=== PATIENT | female | born 1960 | race Caucasian/White ===

== ENCOUNTER 2016-09-29 15:07 | Inpatient (IN) | payer MEDICARE, MEDICAID ==
[2016-09-29 15:17] LABS: ABG Draw Site Left Radial; ALLEN'S TEST PASS; TCO2 46.9 MMOL/L (23-27)
--- NOTE | 2016-09-29 16:10 | DIRPT ---
CLINICAL DATA: Central line placement. Endotracheal tube placement. EXAM: PORTABLE CHEST 1 VIEW COMPARISON: 09/14/2016 FINDINGS: Right-sided IJ central line has been placed, tip overlying the level of the lower superior vena cava. Despite history, it no endotracheal tube is evident. Right hemidiaphragm is elevated. Heart is enlarged. There is pulmonary vascular congestion. IMPRESSION: 1. Interval placement of right IJ central line. No pneumothorax. 2. No endotracheal tube is evident. Electronically Signed By: Yue Villa M.D. On: 09/29/2016 16:07
--- NOTE | 2016-09-29 16:22 | EDPRACDOC ---
<Donovan Castaneda - Last Filed: 09/29/16 19:57> - General Information Information Source: Heel Padder Mode Of Arrival: Ambulance - History of Present Illness Exact Onset of Symptoms: Unknown HPI: Pt from [facility] brought by EMS c/o being unresponsive at facility. Pt unresponsive when EMS got there but revived and was alert and oriented in truck on O2 6L [place]. CO2 level was 80, came down to 60 per EMS. Pt normally on CPAP. Has a baseline tremor. Only complaint on arrival is "she has to pee". denies cp, sob. Duration: Unknown Symptoms Currently: Reports: Resolved Altered Quality: Reports: Decreased Alertness Altered Severity: Reports: Moderate Recent Symptoms of: Reports: None Relevant History: Reports: None Prehospital: Reports: Heel Padder, O2, IV <Keron Arenas - Last Filed: 09/29/16 23:44> - General Information Stated Complaint: RESP DISTRESS Home Medications: Home Medications Acetaminophen [Tylenol] 650 mg PO TID 08/29/16 Albuterol Sulfate [Ventolin Hfa] 2 puff INH Q6H PRN 08/29/16 Albuterol/Ipratropium Neb [Duoneb] 3 ml NEB Q8H 08/29/16 Alendronate Sodium [Fosamax] 70 mg PO FR 08/29/16 Atorvastatin Calcium [Lipitor] 80 mg PO HS 08/29/16 Bisacodyl [Dulcolax] 10 mg SC HS 08/29/16 Calcium Carbonate/Vitamin D3 [Oyster Shell 500-Vit D3 200 Tb] 1 tab PO TID 08/29 Cranberry Fruit Concentrate [Cranberry] 450 mg PO TID 08/29/16 Dextran 70/Hypromellose [Natural Balance Tears Eye Drop] 2 drops OU Q2H PRN Dicyclomine HCl [Bentyl] 40 mg PO QID 08/29/16 Gabapentin [Neurontin] 200 mg PO TID 08/29/16 Guaifenesin 1,200 mg PO BID 08/29/16 Insulin Aspart [Novolog Flexpen] 10 unit SQ .TID WITH MEALS 08/29/16 Insulin Glargine,Hum.rec.anlog [Toujeo Solostar] 133 unit SQ HS 08/29/16 Levothyroxine [Synthroid, Levoxyl] 200 mcg PO QAM 08/29/16 Lisinopril [Zestril] 20 mg PO QAM 08/29/16 Magnesium Hydroxide [Milk of Magnesia] 30 ml PO HS 08/29/16 Methadone HCl 5 mg PO TID 08/29/16 Methadone HCl 7.5 mg PO HS 08/29/16 Naloxone HCl [Narcan] 4 mg RENY .PRN PRN 08/29/16 Omeprazole 20 mg PO DAILY 08/29/16 Ondansetron HCl [Zofran] 4 mg PO Q6H PRN 08/29/16 Oxycodone HCl [Oxycodone Immediate Release] 15 mg PO Q4H PRN 08/29/16 Polyethylene Glycol 3350 [Miralax] 17 gm PO DAILY 08/29/16 Potassium Chloride 20 meq PO DAILY 08/29/16 Promethazine HCl 25 mg PO Q6H PRN 08/29/16 Ranitidine HCl [Zantac] 150 mg PO DAILY 08/29/16 Sennosides [Senna] 2 tabs PO DAILY 08/29/16 Venlafaxine HCl [Effexor Xr] 225 mg PO DAILY 08/29/16 Vitamins, Multiple [Unicap] 1 cap PO DAILY 08/29/16 Furosemide [Lasix] 40 mg PO DAILY PRN 09/14/16 Furosemide [Lasix] 80 mg PO DAILY 09/14/16 Cefepime HCl 1 gm IV .Q12H X 10D 09/29/16 Allergies/Adverse Reactions: Allergies Allergy/AdvReac Type Severity Reaction Status Date / Time cephalexin [From Keflex] Allergy Unknown Verified 08/29/16 12:01 erythromycin base Allergy Unknown Verified 08/29/16 12:01 moxifloxacin Allergy See Verified 08/29/16 12:01 Comments ED Past Medical History - History Reviewed Yes Nurses notes reviewed and agree except as marked - Patient Medical History Cardiac History: Reports: Hypertension, Hypercholesterolemia, Valvular Heart Disease Respiratory History: Reports: COPD, Pneumonia GI/ History: Reports: Renal Disease, Gastroesophageal Reflux, IBD Musculoskeletal History: Reports: Osteoarthritis Psychological History: Reports: Anxiety. Denies: Depression Systemic History: Reports: Cancer, Diabetes Surgical History: Reports: Cholecystectomy, Other (thyroid, neck exploration x 2 ,shoulder,thigh abscess, cyst,ectopic pregnanc) - Family Medical History Reports: Hypertension, Diabetes - Social Medical History Smoking Status: Never smoker <Keron Arenas - Last Filed: 09/29/16 23:44> EDM Review of Systems - Review of Systems ROS Negative Except as Marked: Yes All systems reviewed and were negative except as marked <Keron Arenas - Last Filed: 09/29/16 23:44> - Physical Exam Last recorded Vital Signs: Last Vital Signs Temp Pulse 87 09/29/16 16:04 Resp 24 09/29/16 16:04 BP 105/72 09/29/16 16:04 Pulse Ox 94 09/29/16 16:04 Oxygen Pulse Oxygen Saturation 94 O2 Device CPAP Oxygen Flow Rate Fraction of Inspired Oxygen ( 35 FIO2) <Donovan Castaneda - Last Filed: 09/29/16 19:57> - Physical Exam Constitutional: No apparent distress, Alert Oriented to: Time, Person, Place Last recorded Vital Signs: Last Vital Signs Temp Pulse 87 09/29/16 16:04 Resp 24 09/29/16 16:04 BP 105/72 09/29/16 16:04 Pulse Ox 94 09/29/16 16:04 Oxygen Pulse Oxygen Saturation 94 O2 Device CPAP Oxygen Flow Rate Fraction of Inspired Oxygen ( 35 FIO2) - HEENT Head: Normal Eye Exam: negative: Conjunctival Injection, Scleral Icterus Oropharynx: negative: Drooling Nose: No Symptoms Reported Neck: Normal - Respiratory/Cardiovascular Respiratory: Normal - CTA Cardiovascular: Normal - GI Tenderness: Non tender - Musculoskeletal Back: Normal Extremities: Normal - Integumentary Skin: Normal - Neurologic Mood Description: Normal Thought: Coherent <Keron Arenas - Last Filed: 09/29/16 23:44> ED Procedures - Central Line Informed of risks, benefits and alternatives described.: No Central Line Informed Consent Signed: Unable Indication: No peripheral access Line Procedure: Chlorahexadine Equipment used during procedure: Hat and Mask, Sterile Gown, Sterile Gloves Line Lumen: triple Central Line Postion: internal jugular (R) Anesthesia: Lidocaine Line Position approached and secured by standard fashion: sutured, good blood return, position confirmed w/ CXR Complications: none Post Central Line placement CXR: Ordered Post Line Placement Radiograph Findings: Proper placement <Donovan Castaneda - Last Filed: 09/29/16 19:57> - Results 09/29/16 16:16 09/29/16 16:16 WBC 9.2 xk/uL (3.8-10.8) 09/29/16 16:16 RBC 4.06 xM/uL (4.20-5.40) L 09/29/16 16:16 Hgb 11.3 g/dL (12.0-16.0) L 09/29/16 16:16 Hct 36.4 % (36-47) 09/29/16 16:16 MCV 90 fL (81-99) 09/29/16 16:16 MCH 27.8 pg (27-32) 09/29/16 16:16 MCHC 31.0 g/dl (33-36) L 09/29/16 16:16 RDW 18.4 % (11.5-14.5) H 09/29/16 16:16 Plt Count 380 xk/uL (130-400) 09/29/16 16:16 MPV 8.0 fL (7.4-10.4) 09/29/16 16:16 Neut % (Auto) Cancelled 09/29/16 16:16 Lymph % (Auto) Cancelled 09/29/16 16:16 [place] % (Auto) Cancelled 09/29/16 16:16 Eos % (Auto) Cancelled 09/29/16 16:16 Baso % (Auto) Cancelled 09/29/16 16:16 Absolute Neuts (auto) Cancelled 09/29/16 16:16 Absolute Lymphs (auto) Cancelled 09/29/16 16:16 Seg Neuts % (Manual) 83 % (45-76) H 09/29/16 16:16 Band Neutrophils % 0 % (0-5) 09/29/16 16:16 Lymphocytes % (Manual) 9 % (17-44) L 09/29/16 16:16 Monocytes % (Manual) 8 % (0-10) 09/29/16 16:16 Absolute Neutrophils 7.64 xk/uL (1.7-8.2) 09/29/16 16:16 Absolute Lymphocytes 0.83 xk/uL (0.65-4.75) 09/29/16 16:16 Platelet Estimate Large plts present (NORMAL) Plt clumps present (NORMAL) 09/29/16 16:16 Platelet Estimate Large plts present (NORMAL) Plt clumps present (NORMAL) 09/29/16 16:16 RBC Morphology 1+ aniso 1+ polychrom 09/29/16 16:16 RBC Morphology 1+ aniso 1+ polychrom 09/29/16 16:16 PT 9.7 SEC (9.2-11.2) 09/29/16 16:16 INR 0.9 09/29/16 16:16 APTT 19.1 SEC (22-35) L 09/29/16 16:16 Puncture Site Left radial 09/29/16 16:45 pH 7.360 pH UNITS (7.35-7.45) 09/29/16 16:45 pCO2 78.0 mmHg (35-45) H* 09/29/16 16:45 pO2 89.0 mmHg (80-100) 09/29/16 16:45 HCO3 44.1 MMOL/L (22-26) H 09/29/16 16:45 Total CO2 46.5 MMOL/L (23-27) H 09/29/16 16:45 Base Excess 14.7 (+/- 2) H 09/29/16 16:45 Vent Mode Bipap 14/05 RATE 09/29/16 16:45 FiO2 % 35% 09/29/16 16:45 Specimen Drawn By Piksa 09/29/16 16:45 Sodium 143 mEq/L (137-146) 09/29/16 16:16 Potassium 4.4 mEq/L (3.5-5.1) 09/29/16 16:16 Chloride 94 mEq/L (98-107) L 09/29/16 16:16 Carbon Dioxide 38 mMOL/L (22-33) H 09/29/16 16:16 Anion Gap 15 mEq/L (8-16) 09/29/16 16:16 BUN 38 MG/DL (7-17) H 09/29/16 16:16 Creatinine 0.70 MG/DL (0.52-1.04) 09/29/16 16:16 Estimated GFR (MDRD) > 60 mL/min (>=60) 09/29/16 16:16 Glucose 210 MG/DL (70-99) H 09/29/16 16:16 Calculated Osmolality 290 MOs/Kg (270-290) 09/29/16 16:16 Lactic Acid 1.9 mEq/L (0.7-2.1) 09/29/16 16:16 Calcium 8.6 MG/DL (8.4-10.2) 09/29/16 16:16 Corrected Calcium 9.3 MG/DL (8.4-10.2) 09/29/16 16:16 Total Bilirubin 0.4 MG/DL (0.2-1.3) 09/29/16 16:16 AST 27 IU/L (14-36) 09/29/16 16:16 ALT 39 IU/L (9-52) 09/29/16 16:16 Alkaline Phosphatase 110 IU/L (38-126) 09/29/16 16:16 Troponin I 0.01 ng/mL (<.04) 09/29/16 16:16 Total Protein 6.4 G/DL (6.3-8.2) 09/29/16 16:16 Albumin 3.3 G/DL (3.5-5.0) L 09/29/16 16:16 Lab Results 09/29/16 09/29/16 09/29/16 16:45 16:16 16:16 WBC 9.2 RBC 4.06 L Hgb 11.3 L Hct 36.4 MCV 90 MCH 27.8 MCHC 31.0 L RDW 18.4 H Plt Count 380 MPV 8.0 Neut % (Auto) Cancelled Lymph % (Auto) Cancelled [place] % (Auto) Cancelled Eos % (Auto) Cancelled Baso % (Auto) Cancelled Absolute Neuts (auto) Cancelled Absolute Lymphs (auto) Cancelled Seg Neuts % (Manual) 83 H Band Neutrophils % 0 Lymphocytes % (Manual) 9 L Monocytes % (Manual) 8 Absolute Neutrophils 7.64 Absolute Lymphocytes 0.83 Platelet Estimate Plt clumps present RBC Morphology 1+ polychrom PT 9.7 INR 0.9 APTT 19.1 L Puncture Site Left radial pH 7.360 pCO2 78.0 H* pO2 89.0 HCO3 44.1 H Total CO2 46.5 H Base Excess 14.7 H Vent Mode Bipap 14/8 FiO2 % 35% Specimen Drawn By Piksa Sodium Potassium Chloride Carbon Dioxide Anion Gap BUN Creatinine Estimated GFR (MDRD) Glucose Calculated Osmolality Lactic Acid Calcium Corrected Calcium Total Bilirubin AST ALT Alkaline Phosphatase Troponin I Total Protein Albumin 09/29/16 09/29/16 09/29/16 16:16 16:16 15:00 WBC RBC Hgb Hct MCV MCH MCHC RDW Plt Count MPV Neut % (Auto) Lymph % (Auto) [place] % (Auto) Eos % (Auto) Baso % (Auto) Absolute Neuts (auto) Absolute Lymphs (auto) Seg Neuts % (Manual) Band Neutrophils % Lymphocytes % (Manual) Monocytes % (Manual) Absolute Neutrophils Absolute Lymphocytes Platelet Estimate RBC Morphology PT INR APTT Puncture Site Left radial pH 7.320 L pCO2 86.0 H* pO2 67.0 L HCO3 44.3 H Total CO2 46.9 H Base Excess 14.0 H Vent Mode FiO2 % 3lpm nc Specimen Drawn By Piksa Sodium 143 Potassium 4.4 Chloride 94 L Carbon Dioxide 38 H Anion Gap 15 BUN 38 H Creatinine 0.70 Estimated GFR (MDRD) > 60 Glucose 210 H Calculated Osmolality 290 Lactic Acid 1.9 Calcium 8.6 Corrected Calcium 9.3 Total Bilirubin 0.4 AST 27 ALT 39 Alkaline Phosphatase 110 Troponin I 0.01 Total Protein 6.4 Albumin 3.3 L - Additional Information Additional Information: ADDENDUM LAB DRAW DELAY. <Donovan Castaneda - Last Filed: 09/29/16 19:57> - Re-evaluation Re-evaluation 1 Re-evaluation Time: 16:28 (VS wnl, pt sleeping but wakes up and is a+o ) - Results 09/29/16 16:16 09/29/16 16:16 Puncture Site Left radial 09/29/16 15:00 pH 7.320 pH UNITS (7.35-7.45) L 09/29/16 15:00 pCO2 86.0 mmHg (35-45) H* 09/29/16 15:00 pO2 67.0 mmHg (80-100) L 09/29/16 15:00 HCO3 44.3 MMOL/L (22-26) H 09/29/16 15:00 Total CO2 46.9 MMOL/L (23-27) H 09/29/16 15:00 Base Excess 14.0 (+/- 2) H 09/29/16 15:00 FiO2 % 3lpm nc 09/29/16 15:00 Specimen Drawn By Piksa 09/29/16 15:00 Lab Results 09/29/16 15:00 Puncture Site Left radial pH 7.320 L pCO2 86.0 H* pO2 67.0 L HCO3 44.3 H Total CO2 46.9 H Base Excess 14.0 H FiO2 % 3lpm nc Specimen Drawn By Piksa - EKG EKG #1 EKG Time: 15:08 -: Yes EKG interpreted by me Rate: bpm: 97 Rhythm: NSR ST: Normal Comparison: 09/14/16 (no sig change) <Keron Arenas - Last Filed: 09/29/16 23:44> ED Critical Care Note - Critical Care Note Total Time (mins): 35 <Donovan Castaneda - Last Filed: 09/29/16 19:57> - Departure Yes I personally saw and evaluated the patient. Decision to Admit Time: 17:00 (GREEN) Decision to admit date: 09/29/16 Decision to admit: from ED <Donovan Castaneda - Last Filed: 09/29/16 19:57> - Departure Disposition: Admit IP To This Hospital <Keron Arenas - Last Filed: 09/29/16 23:44> - Departure Condition: Critical Final Diagnosis: RESPIRATORY FAILURE, CENTRAL LINE BY DOLLY, HYPERCARBIA WITH AMS
[2016-09-29 16:40] LABS: BLOOD UREA NITROGEN 38 MG/DL (7-17); CALC CORRECTED 9.3 MG/DL (8.4-10.2); CALCIUM 8.6 MG/DL (8.4-10.2); CALCULATED OSMOLALITY 290 MOs/Kg (270-290); CHLORIDE 94 mEq/L (98-107); GLUCOSE 210 MG/DL (70-99); SODIUM LEVEL 143 mEq/L (137-146); TOTAL PROTEIN 6.4 G/DL (6.3-8.2)
[2016-09-29 16:43] LABS: PARTIAL THROMB. TIME 19.1 SEC (22-35); PT-INR 0.9
[2016-09-29 16:50] LABS: ALLEN'S TEST PASS; BEb 14.7 (+/- 2); TCO2 46.5 MMOL/L (23-27)
[2016-09-29 16:50] LABS: SEG NEUTROPHIL 83 % (45-76)
[2016-09-29 16:51] LABS: ABG Draw Site Left Radial; MODE BIPAP 14/8 RATE
--- NOTE | 2016-09-29 18:00 | HISTPHYS ---
- Chief Complaint Shortness of breath - History of Present Illness Patient is a 56-year-old morbidly obese white female brought in from [facility] by EMS. She was unresponsive at the facility. She remains a centrally unresponsive and unable to give any history. History from the ER is listed below. No family or other caregivers available. Exact Onset of Symptoms: Unknown HPI: Pt from [facility] brought by EMS c/o being unresponsive at facility. Pt unresponsive when EMS got there but revived and was alert and oriented in truck on O2 6L [place]. CO2 level was 80, came down to 60 per EMS. Pt normally on CPAP. Has a baseline tremor. Only complaint on arrival is "she has to pee". denies cp, sob. Duration: Unknown Symptoms Currently: Reports: Resolved Altered Quality: Reports: Decreased Alertness Altered Severity: Reports: Moderate Recent Symptoms of: Reports: None Relevant History: Reports: None Prehospital: Reports: Service Director, O2, IV - Medical History Cardiac History: Reports: Hypertension, Hypercholesterolemia, Valvular Heart Disease Respiratory History: Reports: COPD, Pneumonia GI/ History: Reports: Renal Disease, Gastroesophageal Reflux, IBD Musculoskeletal History: Reports: Osteoarthritis Systemic History: Reports: Cancer, Diabetes Psychological History: Reports: Anxiety. Denies: Depression - Surgical History Reports: Cholecystectomy, Other (thyroid, neck exploration x 2,shoulder,thigh abscess, cyst,ectopic pregnanc) - Medictions/Allergies Allergies cephalexin [From Keflex] Allergy (Verified 08/29/16 12:01) Unknown erythromycin base Allergy (Verified 08/29/16 12:01) Unknown moxifloxacin Allergy (Verified 08/29/16 12:01) See Comments Home Medications Acetaminophen [Tylenol] 650 mg PO TID 08/29/16 Albuterol Sulfate [Ventolin Hfa] 2 puff INH Q6H PRN 08/29/16 Albuterol/Ipratropium Neb [Duoneb] 3 ml NEB Q8H 08/29/16 Alendronate Sodium [Fosamax] 70 mg PO FR 08/29/16 Atorvastatin Calcium [Lipitor] 80 mg PO HS 08/29/16 Bisacodyl [Dulcolax] 10 mg IN HS 08/29/16 Calcium Carbonate/Vitamin D3 [Oyster Shell 500-Vit D3 200 Tb] 1 tab PO TID 08/29 Cranberry Fruit Concentrate [Cranberry] 450 mg PO TID 08/29/16 Dextran 70/Hypromellose [Natural Balance Tears Eye Drop] 2 drops OU Q2H PRN Dicyclomine HCl [Bentyl] 40 mg PO QID 08/29/16 Gabapentin [Neurontin] 200 mg PO TID 08/29/16 Guaifenesin 1,200 mg PO BID 08/29/16 Insulin Aspart [Novolog Flexpen] 10 unit SQ .TID WITH MEALS 08/29/16 Insulin Glargine,Hum.rec.anlog [Toujeo Solostar] 133 unit SQ HS 08/29/16 Levothyroxine [Synthroid, Levoxyl] 200 mcg PO QAM 08/29/16 Lisinopril [Zestril] 20 mg PO QAM 08/29/16 Magnesium Hydroxide [Milk of Magnesia] 30 ml PO HS 08/29/16 Methadone HCl 5 mg PO TID 08/29/16 Methadone HCl 7.5 mg PO HS 08/29/16 Naloxone HCl [Narcan] 4 mg RENY .PRN PRN 08/29/16 Omeprazole 20 mg PO DAILY 08/29/16 Ondansetron HCl [Zofran] 4 mg PO Q6H PRN 08/29/16 Oxycodone HCl [Oxycodone Immediate Release] 15 mg PO Q4H PRN 08/29/16 Polyethylene Glycol 3350 [Miralax] 17 gm PO DAILY 08/29/16 Potassium Chloride 20 meq PO DAILY 08/29/16 Promethazine HCl 25 mg PO Q6H PRN 08/29/16 Ranitidine HCl [Zantac] 150 mg PO DAILY 08/29/16 Sennosides [Senna] 2 tabs PO DAILY 08/29/16 Venlafaxine HCl [Effexor Xr] 225 mg PO DAILY 08/29/16 Vitamins, Multiple [Unicap] 1 cap PO DAILY 08/29/16 Furosemide [Lasix] 40 mg PO DAILY PRN 09/14/16 Furosemide [Lasix] 80 mg PO DAILY 09/14/16 Cefepime HCl 1 gm IV .Q12H X 10D 09/29/16 - Family History Reports: Hypertension, Diabetes - Social History Lives: in Jail/SNF Smoking Status: Never smoker - Review of Systems Yes Review of systems cannot be obtained due to the patient's medical condition Constitutional: No Symptoms Reported (No Fever, chills, wt loss/gain, diaphoresis,fatigue/malaise.). negative: Fever, Chills, Weakness, Fatigue, Loss of Appetite - Eyes No Symptoms Reported (No blurry vision, visual changes, eye pain, or eye redness.) - Ears No Symptoms Reported (No ear pain or discharge) - Nose No Symptoms Reported (No nasal discharge/congestion or bleeding) - Mouth Mouth: No Symptoms Reported (No oropharyngeal lesions or erythema) - Throat/Neck No Symptoms Reported (No throat pain or swelling.No oropharyngeal lesions or erythema.) - Respiratory No Symptoms Reported (No cough, wheezing, or shortness of breath.) - Cardiovascular No Symptoms Reported (No chest pain or palpitations.) - Neurological No Symptoms Reported (No headache, dizziness, seizures, or focal weakness.) - Integumentary No Symptoms Reported (no rashes or lesions) - Allergic/Immunologic No Symptoms Reported (no rashes or lesions) - Hematologic No Symptoms Reported (No chronic anemia, bleeding, or easy bruising.) - Endocrine No Symptoms Reported (No thyroid issues, polyuria, or polydipsia.) - Psychiatric No Symptoms Reported (Fully oriented, with normal and appropriate affect.) - Physical Exam Constitutional: Distress, Decreased Consciousness, Other (Morbid obesity). negative: Alert Oriented to: Person, Unable to Test Exam: Last Vital Signs Temp Pulse 87 09/29/16 16:04 Resp 24 09/29/16 16:04 BP 105/72 09/29/16 16:04 Pulse Ox 94 09/29/16 16:04 - HEENT Head: Normal Eye: negative: Conjunctival Injection, Scleral Icterus, Xanthelasma Oropharynx: negative: Drooling, Exudate, Red, White Plaques Tympanic Membrane: Normal (No discharge) ENT EAC: Normal (No oropharyngeal lesions or erythema. Mucous membranes are dry. ) TMJ: Normal Nose: No Symptoms Reported - Respiratory/Cardiovascular Respiratory: Accessory Muscle Use, Diminished, Tachypnea. negative: Excursion ( Decreased excursion) Cardiovascular: Normal (RRR , Normal S1, S2. No murmurs, rubs, or gallops. PMI non-displaced. Carotids: no carotid bruits. No bradycardia or tachycardia. DP pulses 2+ bilaterally.) - GI Auscultation: Normal (NABS) Palpation: Normal (Soft,non distended,nontender. No hepatosplenomegaly.) Tenderness: Non tender Torres's Sign: Negative - Musculoskeletal Back: Normal Extremities: Normal - Integumentary Skin: Normal Lymphatics: Normal (No cervical lymphadenopathy. No supraclavicular lymphadenopathy.) - Neurologic Memory Impaired: Unable to Test Motor Function: Unable to Test Cranial Nerve: Unable to Test Cerebellar: Unable to Test Mood Description: Uncooperative Perception: Normal (Normal and appropriate affect) - Focused CV Perfusion Exam Vital Signs: Last Vital Signs Temp Pulse 87 09/29/16 16:04 Resp 24 09/29/16 16:04 BP 105/72 09/29/16 16:04 Pulse Ox 94 09/29/16 16:04 - Lab Results 09/29/16 16:16 09/29/16 16:16 Laboratory Tests 09/14/16 09/29/16 09/29/16 13:46 15:00 16:16 INR 0.9 pH 7.420 7.320 L pCO2 78.0 H* 86.0 H* pO2 75.0 L 67.0 L HCO3 50.6 H 44.3 H Total CO2 53.0 H Base Excess 21.3 H 14.0 H Vent Mode 09/29/16 16:45 INR pH 7.360 pCO2 78.0 H* pO2 89.0 HCO3 44.1 H Total CO2 46.5 H Base Excess 14.7 H Vent Mode Bipap 14/8 - Assessment (1) Hypercapnic respiratory failure J96.92 - RESPIRATORY FAILURE, UNSPECIFIED WITH HYPERCAPNIA Acute Qualifiers: Chronicity: acute on chronic Qualified Code(s): J96.22 - Acute and chronic respiratory failure with hypercapnia Admit patient [facility] ICU for further treatment and evaluation. She is critically ill. She is requiring BiPAP noted to maintain any respiratory status. She does appear to be improving very slightly. Will continue with BiPAP adjust settings as needed. Adjust O2 as needed to keep O2 sats between 90 and 92. Will continue to follow. Uncertain what may have set this off. Could have an underlying infection. (2) UTI (urinary tract infection) N39.0 - URINARY TRACT INFECTION, SITE NOT SPECIFIED Acute Qualifiers: Urinary tract infection type: acute cystitis Hematuria presence: with hematuria Qualified Code(s): N30.01 - Acute cystitis with hematuria Suspected. Will go ahead and treat. Check cultures of urine and blood. (3) DM2 (diabetes mellitus, type 2) E11.9 - TYPE 2 DIABETES MELLITUS WITHOUT COMPLICATIONS Chronic Qualifiers: Diabetes mellitus complication status: with neurologic complications Diabetes mellitus complication detail: with other neurological complication Diabetes mellitus continuous churn buttermaker insulin use: with skilled nursing use Qualified Code(s) : E11.49 - Type 2 diabetes mellitus with other diabetic neurological complication; Z79.4 - local company intermodal truck driver (current) use of insulin Patient has morbid obesity. Will continue with sliding scale insulin coverage. When she is able to start taking p.o. will start ADA diet. (4) GERD (gastroesophageal reflux disease) K21.9 - GASTRO-ESOPHAGEAL REFLUX DISEASE WITHOUT ESOPHAGITIS Chronic Qualifiers: Esophagitis presence: without esophagitis Qualified Code(s): K21.9 - Gastro -esophageal reflux disease without esophagitis Continue PPI (5) HTN (hypertension) I10 - ESSENTIAL (PRIMARY) HYPERTENSION Chronic Qualifiers: Hypertension type: essential hypertension Qualified Code(s): I10 - Essential (primary) hypertension Hold current blood pressure medications. Restart as needed. Case Care Discussed with: Nursing Staff Total Time: 60 Critical Care: Yes Code: 291
[2016-09-29] MEDS ORDERED: Non-Formulary Medication ITEM (Oxycodone Hcl [Oxycodone Immediate Release] 15 MG) PO PRN (18:03)
[2016-09-29] MEDS ORDERED: TUSSIONEX 5 ML ORAL SYRINGE PO PRN (18:09)
[2016-09-29] MEDS ORDERED: PROMETHAZINE 25 MG/ML VIAL IV PRN (18:09)
[2016-09-29] MEDS ORDERED: ONDANSETRON HCL 4 MG/2 ML VIAL IV PRN (18:09)
[2016-09-29] MEDS ORDERED: FLEET 4.5 OZ ENEMA PR PRN (18:09)
[2016-09-29] MEDS ORDERED: ACETAMINOPHEN 650 MG SUPP PR PRN (18:09)
[2016-09-29] MEDS ORDERED: Aluminum;Magnesium;Simethicone 30 ML UDC PO PRN (18:09)
[2016-09-29] MEDS ORDERED: GUAIFEN 100 MG-DEXTROMETH 10 MG PER 5 ML PO PRN (18:09)
[2016-09-29] MEDS ORDERED: SODIUM CHLORIDE 0.9% 3 ML FLUSH FLUSH PRN (18:10)
[2016-09-29] MEDS ORDERED: GLUCOSE (ORAL GEL) 15 GM TUBE PO PRN (18:10)
[2016-09-29] MEDS ORDERED: GLUCAGON 1 MG VIAL SQ PRN (18:10)
[2016-09-29] MEDS ORDERED: SODIUM CHLORIDE 0.9% 5 ML FLUSH FLUSH PRN (18:10)
[2016-09-29] MEDS ORDERED: ALBUTEROL 0.083% 3 ML NEB NEB PRN (18:10)
[2016-09-29] MEDS ORDERED: DEXTROSE 25 GM/50 ML PFS IV PRN (18:10)
[2016-09-29] MEDS ORDERED: ARTIFICIAL TEARS OPH SOLN 15 ML OU PRN (18:23)
[2016-09-29] MEDS ORDERED: INSULIN ASPART 100 UNITS/ML PEN SQ SCH (19:00)
[2016-09-29] MEDS ORDERED: GLARGINE INSULIN (LANTUS) 100 UNITS/ML PEN SQ SCH (19:00)
[2016-09-29 19:03] LABS: LEUKOCYTES/URINE NEG (NEGATIVE); NITRITE/URINE POS (NEGATIVE); URINE OCCULT BLOOD NEG (NEG/TRACE)
[2016-09-29] MEDS ORDERED: Vaccine Screening Complete SCH (20:00)
[2016-09-29] MEDS: METHADONE 10 MG TAB PO SCH (20:25)
[2016-09-29] MEDS: DICYCLOMINE 20 MG TAB PO SCH (20:25)
[2016-09-29] MEDS: BISACODYL 10 MG SUPP PR SCH (20:25)
[2016-09-29] MEDS: CHLORHEXIDINE (HIBICLENS) 4 OZ BOTTLE TOP SCH (20:25)
[2016-09-29] MEDS: GABAPENTIN 100 MG CAP PO SCH (20:26)
[2016-09-29] MEDS: GUAIFENESIN 600 MG LA TAB PO SCH (20:26)
[2016-09-29] MEDS: MAGNESIUM HYDROXIDE 30 ML BOTTLE PO SCH (20:26)
[2016-09-29] MEDS: ATORVASTATIN 80 MG TAB PO SCH (20:26)
[2016-09-29] MEDS: PIPERACILLIN AND TAZOBACTAM 4.5 GM in D5W 100 ML IV SCH (20:41)
[2016-09-29] MEDS: ENOXAPARIN 80 MG/0.8 ML PFS SQ SCH (20:41)
[2016-09-29] MEDS ORDERED: INSULIN GLARGINE SQ SCH (21:00)
[2016-09-29] MEDS ORDERED: METHADONE HCL 5 MG PO SCH (21:00)
[2016-09-29] MEDS ORDERED: METHADONE HCL PO SCH (21:00)
[2016-09-29] MEDS ORDERED: GUAIFENESIN 1200 MG PO SCH (21:00)
[2016-09-29] MEDS ORDERED: [UNRECOGNIZED DRUG - OTHER] SQ SCH (21:00)
[2016-09-29] MEDS: Albuterol/Ipratropium Neb 3 ML NEB NEB SCH (21:04)
--- NOTE | 2016-09-29 21:09 | DIRPT ---
CLINICAL DATA: Initial encounter for shortness of breath with bilateral lower extremity swelling. EXAM: BILATERAL LOWER EXTREMITY VENOUS DOPPLER ULTRASOUND TECHNIQUE: López-scale sonography with graded compression, as well as color Doppler and duplex ultrasound were performed to evaluate the lower extremity deep venous systems from the level of the common femoral vein and including the common femoral, femoral, profunda femoral, popliteal and calf veins including the posterior tibial, peroneal and gastrocnemius veins when visible. The superficial great saphenous vein was also interrogated. Spectral Doppler was utilized to evaluate flow at rest and with distal augmentation maneuvers in the common femoral, femoral and popliteal veins. COMPARISON: None. FINDINGS: RIGHT LOWER EXTREMITY Common Femoral Vein: No evidence of thrombus. Normal compressibility, respiratory phasicity and response to augmentation. Saphenofemoral Junction: No evidence of thrombus. Normal compressibility and flow on color Doppler imaging. Profunda Femoral Vein: No evidence of thrombus. Normal compressibility and flow on color Doppler imaging. Femoral Vein: No evidence of thrombus. Normal compressibility, respiratory phasicity and response to augmentation. Popliteal Vein: No evidence of thrombus. Normal compressibility, respiratory phasicity and response to augmentation. Calf Veins: Poorly visualized secondary to body habitus but no evidence of thrombus where visible. Other Findings: None. LEFT LOWER EXTREMITY Common Femoral Vein: No evidence of thrombus. Normal compressibility, respiratory phasicity and response to augmentation. Saphenofemoral Junction: No evidence of thrombus. Normal compressibility and flow on color Doppler imaging. Profunda Femoral Vein: No evidence of thrombus. Normal compressibility and flow on color Doppler imaging. Femoral Vein: No evidence of thrombus. Normal compressibility, respiratory phasicity and response to augmentation. Popliteal Vein: No evidence of thrombus. Normal compressibility, respiratory phasicity and response to augmentation. Calf Veins: Not well seen secondary to patient body habitus. No evidence for thrombus where visualized. IMPRESSION: No evidence of deep venous thrombosis. Electronically Signed By: John Randall M.D. On: 09/29/2016 21:07
[2016-09-29] MEDS: GLARGINE INSULIN (LANTUS) 100 UNITS/ML PEN SQ SCH (21:20)
[2016-09-29] MEDS: REGULAR INSULIN 100 UNITS/ML - 3 ML VIAL SQ SCH (21:30)
[2016-09-30] MEDS: OXYCODONE HCL 5 MG TABLET PO PRN (01:03)
[2016-09-30] MEDS: METHADONE 10 MG TAB PO SCH ×4 (01:03→18:13)
[2016-09-30] MEDS: Albuterol/Ipratropium Neb 3 ML NEB NEB SCH ×4 (01:31→20:12)
[2016-09-30] MEDS: PIPERACILLIN AND TAZOBACTAM 4.5 GM in D5W 100 ML IV SCH ×4 (02:26→20:50)
[2016-09-30 04:55] LABS: MPV 8.2 fL (7.4-10.4)
[2016-09-30 05:09] LABS: BLOOD UREA NITROGEN 42 MG/DL (7-17); CALCIUM 8.6 MG/DL (8.4-10.2); CALCULATED OSMOLALITY 288 MOs/Kg (270-290); CHLORIDE 94 mEq/L (98-107); GLUCOSE 200 MG/DL (70-99); SODIUM LEVEL 141 mEq/L (137-146)
[2016-09-30] MEDS: GABAPENTIN 100 MG CAP PO SCH ×3 (05:34→20:51)
[2016-09-30] MEDS: PANTOPRAZOLE 40 MG TAB PO SCH (05:34)
[2016-09-30] MEDS: LEVOTHYROXINE 200 MCG (0.2 MG) TAB PO SCH (05:34)
[2016-09-30] MEDS: DICYCLOMINE 20 MG TAB PO SCH ×4 (05:34→20:51)
[2016-09-30] MEDS: SODIUM CHLORIDE 0.9% 3 ML FLUSH FLUSH SCH ×2 (05:35→18:35)
[2016-09-30] MEDS: SODIUM CHLORIDE 0.9% 5 ML FLUSH FLUSH SCH ×2 (05:35→18:35)
[2016-09-30] MEDS: INSULIN ASPART 100 UNITS/ML PEN SQ SCH ×3 (06:19→18:12)
[2016-09-30] MEDS: REGULAR INSULIN 100 UNITS/ML - 3 ML VIAL SQ SCH ×4 (06:20→22:26)
[2016-09-30] MEDS ORDERED: PNEUMOCOCCAL 0.5 ML VIAL IM ONE (08:00)
[2016-09-30] MEDS ORDERED: Non-Formulary Medication ITEM (Potassium Chloride [Potassium Chloride] 20 MEQ) PO SCH (09:00)
[2016-09-30] MEDS ORDERED: POTASSIUM CHLORIDE 20 MEQ TAB PO SCH (09:00)
[2016-09-30] MEDS ORDERED: LISINOPRIL 20 MG TAB PO SCH (09:00)
[2016-09-30] MEDS ORDERED: Non-Formulary Medication ITEM (Omeprazole [Omeprazole] 20 MG) PO SCH (09:00)
[2016-09-30] MEDS: PEG-ELECTROLYTE 17 GM PACK PO SCH (10:18)
[2016-09-30] MEDS: VENLAFAXINE XR 75 MG CAP PO SCH (10:20)
[2016-09-30] MEDS: CALCIUM CARBONATE + VITAMIN D 500 MG TAB PO SCH ×3 (10:22→18:13)
[2016-09-30] MEDS: SENNA CONCENTRATE TAB PO SCH (10:24)
[2016-09-30] MEDS: RANITIDINE 150 MG TAB PO SCH (10:25)
[2016-09-30] MEDS: GUAIFENESIN 600 MG LA TAB PO SCH ×2 (10:25→20:52)
[2016-09-30] MEDS: PROBIOTIC BLEND TAB PO SCH ×2 (13:05→18:13)
[2016-09-30] MEDS: VITAMINS, MULTIPLE CAP PO SCH (13:06)
[2016-09-30] MEDS: ENOXAPARIN 80 MG/0.8 ML PFS SQ SCH (18:12)
[2016-09-30] MEDS: BISACODYL 10 MG SUPP PR SCH (20:51)
[2016-09-30] MEDS: ATORVASTATIN 80 MG TAB PO SCH (20:52)
[2016-09-30] MEDS: MAGNESIUM HYDROXIDE 30 ML BOTTLE PO SCH (20:52)
[2016-09-30] MEDS: CHLORHEXIDINE (HIBICLENS) 4 OZ BOTTLE TOP SCH (20:52)
[2016-09-30] MEDS: GLARGINE INSULIN (LANTUS) 100 UNITS/ML PEN SQ SCH (20:54)
--- NOTE | 2016-09-30 21:10 | GENMEDPROG ---
Chief Complaint: Acute on chronic respiratory failure Subjective Note: Patient less somnolent today. Will continue with current Medicaid she denies significant new complaints Notes Reviewed: Yes Events from last night noted and discussed with Clinical Staff Current Medication List: Reviewed Currently: Reports: CHUCHO PETIT DVT Prophylaxis: Yes - Physical Examination Vital Signs and I&O: Last Vital Signs Temp 97.8 F 09/30/16 14:00 Pulse 79 09/30/16 20:00 Resp 22 09/30/16 14:00 BP 100/55 L 09/30/16 18:00 Pulse Ox 98 09/30/16 20:00 Oxygen Pulse Oxygen Saturation 98 O2 Device Nasal Cannula Oxygen Flow Rate 3 Fraction of Inspired Oxygen ( 35 FIO2) Intake & Output 09/27/16 09/28/16 09/29/16 09/30/16 23:59 23:59 23:59 23:59 Intake Total 0 1206 Output Total 700 525 Balance -700 681 Patient's weight 342 lb 6.4 oz General: Oriented x3, No acute distress, Moderate distress, Weakness, Fatigue, Chills. negative: Alert HEENT: Normal (Normocephalic, atraumatic;EOMI.Sclera white, Nares patent, without discharge or bleeding. No oropharyngeal lesions or erythema. Mucous membranes are dry.) Neck: Non-tender, Full range of motion, Normal Trachea alignment, Normal inspection (No cervical lymphadenopathy. No supraclavicular lymphadenopathy.), No Masses palpable, Supple Lymphatics: Normal (No lymph node swelling or pain.) Respiratory: Accessory Muscle Use, Diminished, Rales, Tachypnea. negative: Excursion (Decreased excursion) Cardiovascular: Regular rate and rhythm (No bradycardia or tachycardia), Normal S1, No Gallops,Rubs/Murmurs, Normal S2, Good Pedal Pulses (DP pulses 2+ bilaterally) GI: Normal bowel sounds (normal active sounds), Soft (non-distended), Non tender , No hepatospenomegaly, No masses, Obese Extremities/Musculoskeletal: Normal pulses (DP pulses 2+ bilaterally) Skin: Warm,Dry and Intact, No rashes, No significant lesion Neurological: Strength at 5/5 X4 ext (Motor 5/5 throughout.), Normal tone, Cranial nerves 3-12 NL ( 2-12 grossly intact.) Psych/Mental Status: Appropriate, Normal Affect Lab/DI/Studies Reviewed: Laboratory Results - last 24 hr 09/29/16 09/29/16 09/30/16 21:04 22:00 04:30 WBC RBC Hgb Hct MCV MCH MCHC RDW Plt Count MPV Sodium 141 Potassium 4.0 Chloride 94 L Carbon Dioxide 42 H Anion Gap 9 BUN 42 H Creatinine 0.70 Estimated GFR (MDRD) > 60 Glucose 200 H POC Capillary Glucose 202 H Calculated Osmolality 288 Calcium 8.6 Troponin I 0.06 09/30/16 09/30/16 09/30/16 04:30 06:13 13:02 WBC 11.5 H RBC 3.49 L Hgb 9.8 L D Hct 31.6 L MCV 90 MCH 28.0 MCHC 31.0 L RDW 18.3 H Plt Count 338 MPV 8.2 Sodium Potassium Chloride Carbon Dioxide Anion Gap BUN Creatinine Estimated GFR (MDRD) Glucose POC Capillary Glucose 212 H 154 H Calculated Osmolality Calcium Troponin I 09/30/16 16:27 WBC RBC Hgb Hct MCV MCH MCHC RDW Plt Count MPV Sodium Potassium Chloride Carbon Dioxide Anion Gap BUN Creatinine Estimated GFR (MDRD) Glucose POC Capillary Glucose 131 H Calculated Osmolality Calcium Troponin I - Assessment (1) Hypercapnic respiratory failure Acute J96.92 - RESPIRATORY FAILURE, UNSPECIFIED WITH HYPERCAPNIA Qualifiers: Chronicity: acute on chronic Qualified Code(s): J96.22 - Acute and chronic respiratory failure with hypercapnia Comment/Plan: Patient remains critically ill and requiring continuous BiPAP for ventilation. Will continue to follow. Check ABG in a.m.. Check chest x-ray as needed. Due to her morbid obesity the chest x-ray (2) UTI (urinary tract infection) Acute N39.0 - URINARY TRACT INFECTION, SITE NOT SPECIFIED Qualifiers: Urinary tract infection type: acute cystitis Hematuria presence: with hematuria Qualified Code(s): N30.01 - Acute cystitis with hematuria Comment/Plan: Suspected. Will go ahead and treat. Check cultures of urine and blood. (3) DM2 (diabetes mellitus, type 2) Chronic E11.9 - TYPE 2 DIABETES MELLITUS WITHOUT COMPLICATIONS Qualifiers: Diabetes mellitus complication status: with neurologic complications Diabetes mellitus complication detail: with other neurological complication Diabetes mellitus dental billing specialist insulin use: with intermediate use Qualified Code(s) : E11.49 - Type 2 diabetes mellitus with other diabetic neurological complication; Z79.4 - assisted (current) use of insulin Comment/Plan: Patient has morbid obesity. Will continue with sliding scale insulin coverage. When she is able to start taking p.o. will start ADA diet. (4) GERD (gastroesophageal reflux disease) Chronic K21.9 - GASTRO-ESOPHAGEAL REFLUX DISEASE WITHOUT ESOPHAGITIS Qualifiers: Esophagitis presence: without esophagitis Qualified Code(s): K21.9 - Gastro -esophageal reflux disease without esophagitis Comment/Plan: Continue PPI (5) HTN (hypertension) Chronic I10 - ESSENTIAL (PRIMARY) HYPERTENSION Qualifiers: Hypertension type: essential hypertension Qualified Code(s): I10 - Essential (primary) hypertension Comment/Plan: Hold current blood pressure medications. Restart as needed. Case Care Discussed with: Patient, Nursing Staff Total Time: 40 Critical Care: Yes Code: 291
[2016-10-01] MEDS: METHADONE 10 MG TAB PO SCH ×4 (00:32→16:42)
[2016-10-01] MEDS: PIPERACILLIN AND TAZOBACTAM 4.5 GM in D5W 100 ML IV SCH ×4 (01:36→21:14)
[2016-10-01] MEDS: Albuterol/Ipratropium Neb 3 ML NEB NEB SCH ×4 (02:03→21:16)
[2016-10-01] MEDS: SODIUM CHLORIDE 0.9% 5 ML FLUSH FLUSH SCH ×2 (05:22→17:43)
[2016-10-01] MEDS: GABAPENTIN 100 MG CAP PO SCH ×3 (05:25→21:02)
[2016-10-01] MEDS: PANTOPRAZOLE 40 MG TAB PO SCH (05:25)
[2016-10-01] MEDS: LEVOTHYROXINE 200 MCG (0.2 MG) TAB PO SCH (05:25)
[2016-10-01] MEDS: SODIUM CHLORIDE 0.9% 3 ML FLUSH FLUSH SCH ×2 (05:25→17:43)
[2016-10-01 06:06] LABS: MPV 8.6 fL (7.4-10.4)
[2016-10-01] MEDS: INSULIN ASPART 100 UNITS/ML PEN SQ SCH ×3 (06:24→16:55)
[2016-10-01] MEDS: CALCIUM CARBONATE + VITAMIN D 500 MG TAB PO SCH ×3 (06:26→16:42)
[2016-10-01] MEDS: DICYCLOMINE 20 MG TAB PO SCH ×4 (06:26→21:02)
[2016-10-01 06:39] LABS: BLOOD UREA NITROGEN 59 MG/DL (7-17); CALCIUM 8.5 MG/DL (8.4-10.2); CALCULATED OSMOLALITY 287 MOs/Kg (270-290); CHLORIDE 91 mEq/L (98-107); GLUCOSE 163 MG/DL (70-99); SODIUM LEVEL 138 mEq/L (137-146)
[2016-10-01] MEDS: REGULAR INSULIN 100 UNITS/ML - 3 ML VIAL SQ SCH ×4 (06:42→22:13)
[2016-10-01] MEDS ORDERED: NS 1,000 ML IV SCH (08:00)
[2016-10-01] MEDS: RANITIDINE 150 MG TAB PO SCH (08:08)
[2016-10-01] MEDS: VENLAFAXINE XR 75 MG CAP PO SCH (08:08)
[2016-10-01] MEDS: SENNA CONCENTRATE TAB PO SCH (08:09)
[2016-10-01] MEDS: PEG-ELECTROLYTE 17 GM PACK PO SCH (08:09)
[2016-10-01] MEDS: GUAIFENESIN 600 MG LA TAB PO SCH ×2 (08:09→21:02)
--- NOTE | 2016-10-01 08:36 | GENMEDPROG ---
Chief Complaint: Respiratory failure Subjective Note: She is arousable, seems to be oriented, but does not talk to me very much. She denies any chest pain, significant shortness of breath or nausea. Notes Reviewed: Yes Events from last night noted and discussed with Clinical Staff Current Medication List: Reviewed Currently: Reports: PETIT, CHUCHO DVT Prophylaxis: Yes - Physical Examination Vital Signs and I&O: Last Vital Signs Temp 97.7 F 10/01/16 07:00 Pulse 71 10/01/16 07:00 Resp 15 10/01/16 08:28 BP 91/55 L 10/01/16 07:00 Pulse Ox 95 10/01/16 08:28 Oxygen Pulse Oxygen Saturation 95 O2 Device BiPAP Oxygen Flow Rate 3 Fraction of Inspired Oxygen ( 35 FIO2) Intake & Output 09/29/16 09/30/16 10/01/16 10/02/16 06:59 06:59 06:59 06:59 Intake Total 279 1702 Output Total 825 725 Balance -546 977 Patient's weight 155.31 kg 153.405 kg General: Oriented x3, No acute distress, Moderate distress, Weakness, Fatigue, Chills. negative: Alert HEENT: Normal (Normocephalic, atraumatic;EOMI.Sclera white, Nares patent, without discharge or bleeding. No oropharyngeal lesions or erythema. Mucous membranes are dry.) Neck: Non-tender, Full range of motion, Normal Trachea alignment, Normal inspection (No cervical lymphadenopathy. No supraclavicular lymphadenopathy.), No Masses palpable, Supple Lymphatics: Normal (No lymph node swelling or pain.) Respiratory: Accessory Muscle Use, Diminished, Rales, Tachypnea. negative: Excursion (Decreased excursion) Cardiovascular: Regular rate and rhythm (No bradycardia or tachycardia), Normal S1, No Gallops,Rubs/Murmurs, Normal S2, Good Pedal Pulses (DP pulses 2+ bilaterally) GI: Normal bowel sounds (normal active sounds), Soft (non-distended), Non tender , No hepatospenomegaly, No masses, Obese Extremities/Musculoskeletal: Normal pulses (DP pulses 2+ bilaterally) Skin: Warm,Dry and Intact, No rashes, No significant lesion Neurological: Strength at 5/5 X4 ext (Motor 5/5 throughout.), Normal tone, Cranial nerves 3-12 NL ( 2-12 grossly intact.) Psych/Mental Status: Appropriate, Normal Affect Lab/DI/Studies Reviewed: Laboratory Tests 09/30/16 09/30/16 10/01/16 04:30 04:30 05:20 WBC Hgb 9.8 L D Potassium 4.0 5.5 H D BUN 59 H Creatinine 1.30 H D 10/01/16 05:20 WBC 10.0 Hgb 9.5 L Potassium BUN Creatinine - Assessment (1) Acute respiratory failure with hypoxia Acute J96.01 - ACUTE RESPIRATORY FAILURE WITH HYPOXIA Comment/Plan: Seems that her respiratory failure has improved significantly while in the hospital. She has admitted to not being compliant with BiPAP when she last left the hospital. Has also empirically been on Zosyn, respiratory status has been improving. (2) Fluid overload Acute E87.70 - FLUID OVERLOAD, UNSPECIFIED Qualifiers: Hypervolemia type: unspecified Qualified Code(s): E87.70 - Fluid overload, unspecified Comment/Plan: Monitor weight continue IV Lasix infusion. Fluid restriction continue to monitor. (3) Hypercapnic respiratory failure Acute J96.92 - RESPIRATORY FAILURE, UNSPECIFIED WITH HYPERCAPNIA Qualifiers: Chronicity: acute on chronic Qualified Code(s): J96.22 - Acute and chronic respiratory failure with hypercapnia Comment/Plan: Patient respiratory status is now more stable, after being on continues BiPAP for ventilation. (4) Pneumonia Acute J18.9 - PNEUMONIA, UNSPECIFIED ORGANISM Qualifiers: Pneumonia type: due to unspecified organism Laterality: right Lung location: middle lobe of lung Qualified Code(s): J18.9 - Pneumonia, unspecified organism Comment/Plan: Continue empiric Zosyn for now. (5) Poor venous access Acute I87.8 - OTHER SPECIFIED DISORDERS OF VEINS (6) DM2 (diabetes mellitus, type 2) Chronic E11.9 - TYPE 2 DIABETES MELLITUS WITHOUT COMPLICATIONS Qualifiers: Diabetes mellitus complication status: with neurologic complications Diabetes mellitus complication detail: with other neurological complication Diabetes mellitus termite exterminator helper insulin use: with termite exterminator helper use Qualified Code(s) : E11.49 - Type 2 diabetes mellitus with other diabetic neurological complication; Z79.4 - rat exterminator (current) use of insulin Comment/Plan: Patient has morbid obesity. Will continue with sliding scale insulin coverage. ADA diet when eating. (7) GERD (gastroesophageal reflux disease) Chronic K21.9 - GASTRO-ESOPHAGEAL REFLUX DISEASE WITHOUT ESOPHAGITIS Qualifiers: Esophagitis presence: without esophagitis Qualified Code(s): K21.9 - Gastro -esophageal reflux disease without esophagitis Comment/Plan: Continue PPI (8) HTN (hypertension) Chronic I10 - ESSENTIAL (PRIMARY) HYPERTENSION Qualifiers: Hypertension type: essential hypertension Qualified Code(s): I10 - Essential (primary) hypertension Comment/Plan: Hold current blood pressure medications. Restart as needed. (9) Hypothyroid Chronic E03.9 - HYPOTHYROIDISM, UNSPECIFIED Qualifiers: Hypothyroidism type: acquired Qualified Code(s): E03.9 - Hypothyroidism, unspecified Comment/Plan: Continue Synthroid (10) Morbid obesity Chronic E66.01 - MORBID (SEVERE) OBESITY DUE TO EXCESS CALORIES Qualifiers: Obesity type: due to excess calories Qualified Code(s): E66.01 - Morbid ( severe) obesity due to excess calories Comment/Plan: Assist with ADLs and with transfers continue falls and safety precautions. Discussed with patient that she will need to Tramaine is 150 lb in order to feel that she can breathe significantly better. (11) AXEL (acute kidney injury) Acute N17.9 - ACUTE KIDNEY FAILURE, UNSPECIFIED Comment/Plan: Patient develop some hyperkalemia and acute kidney injury overnight. Will discontinue home lisinopril, and scheduled p.o. potassium. Will gently hydrate today and recheck renal function in the morning.
[2016-10-01 09:20] LABS: ALLEN'S TEST PASS; TCO2 44.8 MMOL/L (23-27)
[2016-10-01 09:21] LABS: ABG Draw Site Left Radial
[2016-10-01 09:22] LABS: MODE BIPAP 14/8 RATE
[2016-10-01] MEDS: PROBIOTIC BLEND TAB PO SCH ×2 (11:01→16:42)
[2016-10-01] MEDS: VITAMINS, MULTIPLE CAP PO SCH (11:02)
[2016-10-01] MEDS: NS 1,000 ML IV SCH ×2 (15:03→18:07)
[2016-10-01] MEDS: ENOXAPARIN 80 MG/0.8 ML PFS SQ SCH (17:42)
[2016-10-01] MEDS: BISACODYL 10 MG SUPP PR SCH (20:52)
[2016-10-01] MEDS: MAGNESIUM HYDROXIDE 30 ML BOTTLE PO SCH (21:02)
[2016-10-01] MEDS: ATORVASTATIN 80 MG TAB PO SCH (21:02)
[2016-10-01] MEDS: CHLORHEXIDINE (HIBICLENS) 4 OZ BOTTLE TOP SCH (21:03)
[2016-10-01] MEDS: GLARGINE INSULIN (LANTUS) 100 UNITS/ML PEN SQ SCH (21:03)
[2016-10-01] MEDS: ACETAMINOPHEN 325 MG/TAB TABLET PO PRN (21:03)
[2016-10-02] MEDS: METHADONE 10 MG TAB PO SCH ×4 (01:11→18:37)
[2016-10-02] MEDS: PIPERACILLIN AND TAZOBACTAM 4.5 GM in D5W 100 ML IV SCH ×2 (01:19→09:32)
[2016-10-02] MEDS: NS 1,000 ML IV SCH (01:19)
[2016-10-02] MEDS: Albuterol/Ipratropium Neb 3 ML NEB NEB SCH ×4 (02:19→21:29)
[2016-10-02] MEDS: SODIUM CHLORIDE 0.9% 3 ML FLUSH FLUSH SCH ×2 (05:10→18:34)
[2016-10-02] MEDS: REGULAR INSULIN 100 UNITS/ML - 3 ML VIAL SQ SCH ×4 (05:10→22:17)
[2016-10-02] MEDS: SODIUM CHLORIDE 0.9% 5 ML FLUSH FLUSH SCH ×2 (05:12→18:34)
[2016-10-02] MEDS: LEVOTHYROXINE 200 MCG (0.2 MG) TAB PO SCH (05:26)
[2016-10-02] MEDS: PANTOPRAZOLE 40 MG TAB PO SCH (05:26)
[2016-10-02] MEDS: GABAPENTIN 100 MG CAP PO SCH ×3 (05:26→20:41)
[2016-10-02 06:05] LABS: BLOOD UREA NITROGEN 49 MG/DL (7-17); CALCIUM 7.5 MG/DL (8.4-10.2); CALCULATED OSMOLALITY 283 MOs/Kg (270-290); CHLORIDE 95 mEq/L (98-107); GLUCOSE 134 MG/DL (70-99); SODIUM LEVEL 139 mEq/L (137-146)
[2016-10-02 06:07] LABS: MPV 8.8 fL (7.4-10.4)
--- NOTE | 2016-10-02 08:28 | GENMEDPROG ---
Chief Complaint: 56-year-old female well known to me morbidly obese with obesity hypoventilation syndrome admitted with same. Subjective Note: 56-year-old female morbidly obese and has hypercarbic respiratory failure due to obesity hypoventilation syndrome presented to the hospital with same. She is a patient of Dr. Meehan and I will consult him today. She has not made any significant progress with her carbon dioxide levels. The remained elevated. Notes Reviewed: Yes Events from last night noted and discussed with Clinical Staff Current Medication List: Reviewed Currently: Reports: PETIT, SOB. Denies: Ambulating DVT Prophylaxis: Yes - Physical Examination Vital Signs and I&O: Last Vital Signs Temp 97.7 F 10/02/16 07:00 Pulse 66 10/02/16 06:00 Resp 20 10/02/16 07:23 BP 92/53 L 10/02/16 06:00 Pulse Ox 96 10/02/16 07:23 Oxygen Pulse Oxygen Saturation 96 O2 Device BiPAP Oxygen Flow Rate 2 Fraction of Inspired Oxygen ( 30 FIO2) Intake & Output 09/29/16 09/30/16 10/01/16 10/02/16 23:59 23:59 23:59 23:59 Intake Total 0 1470 4608 1239 Output Total 700 675 750 650 Balance -644 703 8002 589 Patient's weight 155.31 kg 153.405 kg 153.405 kg General: Oriented x3, No acute distress, Moderate distress, Weakness, Fatigue, Chills. negative: Alert HEENT: Normal (Normocephalic, atraumatic;EOMI.Sclera white, Nares patent, without discharge or bleeding. No oropharyngeal lesions or erythema. Mucous membranes are dry.) Neck: Non-tender, Full range of motion, Normal Trachea alignment, Normal inspection (No cervical lymphadenopathy. No supraclavicular lymphadenopathy.), No Masses palpable, Supple Lymphatics: Normal (No lymph node swelling or pain.) Respiratory: Accessory Muscle Use, Diminished, Rales, Tachypnea. negative: Excursion (Decreased excursion) Cardiovascular: Regular rate and rhythm (No bradycardia or tachycardia), Normal S1, No Gallops,Rubs/Murmurs, Normal S2, Good Pedal Pulses (DP pulses 2+ bilaterally) GI: Normal bowel sounds (normal active sounds), Soft (non-distended), Non tender , No hepatospenomegaly, No masses, Obese Extremities/Musculoskeletal: Normal pulses (DP pulses 2+ bilaterally) Skin: Warm,Dry and Intact, No rashes, No significant lesion Neurological: Strength at 5/5 X4 ext (Motor 5/5 throughout.), Normal tone, Cranial nerves 3-12 NL ( 2-12 grossly intact.) Psych/Mental Status: Appropriate, Normal Affect Lab/DI/Studies Reviewed: Laboratory Results - last 24 hr 09/29/16 10/01/16 10/01/16 18:15 05:40 09:15 WBC RBC Hgb Hct MCV MCH MCHC RDW Plt Count MPV Puncture Site Left radial pH 7.380 pCO2 72.0 H* pO2 92.0 HCO3 42.6 H Total CO2 44.8 H Base Excess 14.0 H Vent Mode Bipap 14/8 FiO2 % 35% Specimen Drawn By [place]a Sodium Potassium Chloride Carbon Dioxide Anion Gap BUN Creatinine Estimated GFR (MDRD) Glucose POC Capillary Glucose Calculated Osmolality Calcium Magnesium 3.30 H Ur Random Microalbumin 13.7 10/01/16 10/01/16 10/01/16 11:18 16:54 20:29 WBC RBC Hgb Hct MCV MCH MCHC RDW Plt Count MPV Puncture Site pH pCO2 pO2 HCO3 Total CO2 Base Excess Vent Mode FiO2 % Specimen Drawn By Sodium Potassium Chloride Carbon Dioxide Anion Gap BUN Creatinine Estimated GFR (MDRD) Glucose POC Capillary Glucose 135 H 117 H 185 H Calculated Osmolality Calcium Magnesium Ur Random Microalbumin 10/02/16 10/02/16 10/02/16 04:57 05:00 05:00 WBC 7.5 RBC 3.18 L Hgb 9.1 L Hct 28.8 L MCV 91 MCH 28.5 MCHC 31.4 L RDW 18.4 H Plt Count 316 MPV 8.8 Puncture Site pH pCO2 pO2 HCO3 Total CO2 Base Excess Vent Mode FiO2 % Specimen Drawn By Sodium 139 Potassium 5.1 Chloride 95 L Carbon Dioxide 38 H Anion Gap 11 BUN 49 H Creatinine 1.00 Estimated GFR (MDRD) 57 L Glucose 134 H POC Capillary Glucose 141 H Calculated Osmolality 283 Calcium 7.5 L Magnesium Ur Random Microalbumin - Assessment (1) Acute respiratory failure with hypoxia Acute J96.01 - ACUTE RESPIRATORY FAILURE WITH HYPOXIA Comment/Plan: Patient continuing to have episodes of somnolence in the late afternoon where she is not arousable. I have requested that nursing staff obtain a stat ABG today if that occurs again as ABGs have not been obtained. She has been placed on BiPAP with good results in the past few days when these events occur. At her last hospitalization I spent a significant amount of time educating her about the importance of her BiPAP but apparently she has not been using it at the facility. She has admitted to not being compliant with BiPAP when she last left the hospital. Has also empirically been on Zosyn, respiratory status has been improving. (2) Fluid overload Acute E87.70 - FLUID OVERLOAD, UNSPECIFIED Qualifiers: Hypervolemia type: unspecified Qualified Code(s): E87.70 - Fluid overload, unspecified Comment/Plan: Monitor weight continue IV Lasix infusion. Fluid restriction continue to monitor. (3) Hypercapnic respiratory failure Acute J96.92 - RESPIRATORY FAILURE, UNSPECIFIED WITH HYPERCAPNIA Qualifiers: Chronicity: acute on chronic Qualified Code(s): J96.22 - Acute and chronic respiratory failure with hypercapnia Comment/Plan: Patient respiratory status is now more stable, after being on continues BiPAP for ventilation. Her CO2 levels remained markedly elevated however. He continues to require BiPAP in the late afternoons. Will consult Dr. Meehan for further evaluation and management. (4) Pneumonia Acute J18.9 - PNEUMONIA, UNSPECIFIED ORGANISM Qualifiers: Pneumonia type: due to unspecified organism Laterality: right Lung location: middle lobe of lung Qualified Code(s): J18.9 - Pneumonia, unspecified organism Comment/Plan: Patient with no prior history of resistant organisms. Will switch her from Zosyn to ceftriaxone and azithromycin. Suspect that this is not pneumonia. If chest x-ray looks acceptable may consider discontinuing IV antibiotic (5) DM2 (diabetes mellitus, type 2) Chronic E11.9 - TYPE 2 DIABETES MELLITUS WITHOUT COMPLICATIONS Qualifiers: Diabetes mellitus complication status: with neurologic complications Diabetes mellitus complication detail: with other neurological complication Diabetes mellitus long winder tender insulin use: with fdc use Qualified Code(s) : E11.49 - Type 2 diabetes mellitus with other diabetic neurological complication; Z79.4 - superintendent marine oil terminal (current) use of insulin Comment/Plan: Patient has morbid obesity. Will continue with sliding scale insulin coverage. ADA diet when eating. (6) GERD (gastroesophageal reflux disease) Chronic K21.9 - GASTRO-ESOPHAGEAL REFLUX DISEASE WITHOUT ESOPHAGITIS Qualifiers: Esophagitis presence: without esophagitis Qualified Code(s): K21.9 - Gastro -esophageal reflux disease without esophagitis Comment/Plan: Continue PPI (7) HTN (hypertension) Chronic I10 - ESSENTIAL (PRIMARY) HYPERTENSION Qualifiers: Hypertension type: essential hypertension Qualified Code(s): I10 - Essential (primary) hypertension Comment/Plan: Hold current blood pressure medications. Restart as needed. (8) Hypothyroid Chronic E03.9 - HYPOTHYROIDISM, UNSPECIFIED Qualifiers: Hypothyroidism type: acquired Qualified Code(s): E03.9 - Hypothyroidism, unspecified Comment/Plan: Continue Synthroid (9) Morbid obesity Chronic E66.01 - MORBID (SEVERE) OBESITY DUE TO EXCESS CALORIES Qualifiers: Obesity type: due to excess calories Qualified Code(s): E66.01 - Morbid ( severe) obesity due to excess calories Comment/Plan: Assist with ADLs and with transfers continue falls and safety precautions. Discussed with patient that she will need to Tramaine is 150 lb in order to feel that she can breathe significantly better. (10) AXEL (acute kidney injury) Resolved N17.9 - ACUTE KIDNEY FAILURE, UNSPECIFIED Comment/Plan: Renal function has returned to normal. Discontinue hydration. (11) Poor venous access Inactive I87.8 - OTHER SPECIFIED DISORDERS OF VEINS - Plan Continue current management. Check ABG if patient becomes confused this afternoon. Check portable chest x-ray today. Fluid restriction. Consult Dr. Meehan. Patient remains acutely and critically ill with severe hypercarbia not responsive to current BiPAP therapy. Due to the presence of and/or the risk of deterioration, my attendance to this patient required critical care time, including assessment/reassessment, documentation, ordering and interpreting ancillary studies, discussion with staff and consultants,patient and family, and excludes time spent on separately billable procedures. In summary, this patient is acutely and critically ill. The patient requires treatment of vital organ failure and measures to prevent further life-threatening deterioration of condition. Disposition Plan: Likely back to intermediate facility when improved Case Care Discussed with: Patient, Nursing Staff Education/Counseling Given To: Patient Education/Counseling Given Regarding: Diagnosis, Treatment, Prognosis, Follow Up , Disposition Plan Total Time: 45 minutes Critical Care: Yes Couseling Time (>50% in counseling/coordination): No
[2016-10-02 08:46] LABS: ALLEN'S TEST PASS; BEb 10.9 (+/- 2); TCO2 42.2 MMOL/L (23-27)
[2016-10-02 08:48] LABS: ABG Draw Site LRA; BI-PAP 16/8 cm H2O
[2016-10-02] MEDS: SENNA CONCENTRATE TAB PO SCH (09:18)
[2016-10-02] MEDS: GUAIFENESIN 600 MG LA TAB PO SCH ×2 (09:19→20:41)
[2016-10-02] MEDS: DICYCLOMINE 20 MG TAB PO SCH ×4 (09:19→20:41)
[2016-10-02] MEDS: VENLAFAXINE XR 75 MG CAP PO SCH (09:20)
[2016-10-02] MEDS: RANITIDINE 150 MG TAB PO SCH (09:20)
[2016-10-02] MEDS: CALCIUM CARBONATE + VITAMIN D 500 MG TAB PO SCH ×3 (09:21→18:32)
[2016-10-02] MEDS: INSULIN ASPART 100 UNITS/ML PEN SQ SCH ×3 (09:22→18:30)
[2016-10-02] MEDS: PEG-ELECTROLYTE 17 GM PACK PO SCH (09:23)
[2016-10-02] MEDS: CEFTRIAXONE 1 GM in D5W 100 ML IV SCH (09:28)
--- NOTE | 2016-10-02 10:01 | DIRPT ---
CLINICAL DATA: 56-year-old female with shortness of breath. EXAM: PORTABLE CHEST 1 VIEW COMPARISON: 09/29/2016 and prior exams dating back to 08/29/2016. FINDINGS: This is a low volume film. A right IJ central venous catheter with tip overlying the superior cavoatrial junction noted. Cardiomegaly and mild pulmonary vascular congestion with bibasilar atelectasis again identified. There is no evidence of pneumothorax. IMPRESSION: Unchanged appearance of the chest with mild pulmonary vascular congestion and bibasilar atelectasis. Electronically Signed By: River Jones M.D. On: 10/02/2016 09:59
[2016-10-02] MEDS: NS IV SCH (12:13)
[2016-10-02] MEDS: VITAMINS, MULTIPLE CAP PO SCH (12:13)
[2016-10-02] MEDS: AZITHROMYCIN IV SCH (12:13)
[2016-10-02] MEDS: PROBIOTIC BLEND TAB PO SCH ×2 (12:13→18:32)
[2016-10-02] MEDS ORDERED: NS 1,000 ML IV SCH (15:00)
[2016-10-02] MEDS: ENOXAPARIN 80 MG/0.8 ML PFS SQ SCH (18:36)
[2016-10-02] MEDS: MAGNESIUM HYDROXIDE 30 ML BOTTLE PO SCH (20:41)
[2016-10-02] MEDS: ATORVASTATIN 80 MG TAB PO SCH (20:41)
[2016-10-02] MEDS: CHLORHEXIDINE (HIBICLENS) 4 OZ BOTTLE TOP SCH (20:41)
[2016-10-02] MEDS: BISACODYL 10 MG SUPP PR SCH (20:42)
[2016-10-02] MEDS: GLARGINE INSULIN (LANTUS) 100 UNITS/ML PEN SQ SCH (20:42)
[2016-10-02] MEDS: OXYCODONE HCL 5 MG TABLET PO PRN (20:49)
[2016-10-02] MEDS ORDERED: GLARGINE INSULIN (LANTUS) 100 UNITS/ML PEN SQ SCH (21:00)
[2016-10-03] MEDS: METHADONE 10 MG TAB PO SCH ×5 (00:54→23:49)
[2016-10-03] MEDS: Albuterol/Ipratropium Neb 3 ML NEB NEB SCH ×4 (02:02→22:03)
[2016-10-03 03:41] LABS: ALLEN'S TEST PASS; BEb 12.1 (+/- 2); TCO2 42.6 MMOL/L (23-27)
[2016-10-03 03:46] LABS: ABG Draw Site Right Radial; BI-PAP 16/8 cm H2O; SPONT. RR 16 BR/MIN
[2016-10-03] MEDS: SODIUM CHLORIDE 0.9% 5 ML FLUSH FLUSH SCH ×2 (05:16→17:23)
[2016-10-03] MEDS: GABAPENTIN 100 MG CAP PO SCH ×3 (05:17→20:26)
[2016-10-03] MEDS: LEVOTHYROXINE 200 MCG (0.2 MG) TAB PO SCH (05:17)
[2016-10-03] MEDS: PANTOPRAZOLE 40 MG TAB PO SCH (05:17)
[2016-10-03] MEDS: SODIUM CHLORIDE 0.9% 3 ML FLUSH FLUSH SCH ×2 (05:30→17:22)
[2016-10-03 05:51] LABS: MPV 8.4 fL (7.4-10.4)
[2016-10-03 06:06] LABS: BLOOD UREA NITROGEN 45 MG/DL (7-17); CALCIUM 7.3 MG/DL (8.4-10.2); CALCULATED OSMOLALITY 281 MOs/Kg (270-290); CHLORIDE 96 mEq/L (98-107); GLUCOSE 149 MG/DL (70-99); SODIUM LEVEL 138 mEq/L (137-146)
[2016-10-03] MEDS: DICYCLOMINE 20 MG TAB PO SCH ×4 (06:08→20:12)
[2016-10-03] MEDS: CALCIUM CARBONATE + VITAMIN D 500 MG TAB PO SCH ×3 (06:08→17:21)
[2016-10-03] MEDS: INSULIN ASPART 100 UNITS/ML PEN SQ SCH ×3 (06:09→17:44)
[2016-10-03] MEDS: REGULAR INSULIN 100 UNITS/ML - 3 ML VIAL SQ SCH ×4 (06:13→20:28)
[2016-10-03] MEDS ORDERED: FUROSEMIDE 40 MG/4 ML VIAL IV ONE (08:00)
[2016-10-03] MEDS: CEFTRIAXONE 1 GM in D5W 100 ML IV SCH (08:15)
--- NOTE | 2016-10-03 08:34 | GENMEDPROG ---
Subjective Note: 56-year-old female multiple admissions this past 12 months for respiratory failure admitted yet again within 30 days of her last discharge. Patient is interested in hospice care but states she does not want to be a do not resuscitate. Because she feels that her respiratory problem is reversible. While there is an extremely small chance that this problem is reversible the patient would have to take many measures in order to improve her respiratory function and that would include the need to improve her cardiac exercise which is difficult as she is bed-bound as well as lose about 150 lb. I explained to the patient that she has had multiple admissions that her respiratory status is not improving and that her prognosis is very poor. Nevertheless she would like to be resuscitated. Notes Reviewed: Yes Events from last night noted and discussed with Clinical Staff Current Medication List: Reviewed Currently: Reports: CHUCHO PETIT. Denies: Ambulating DVT Prophylaxis: Yes - Physical Examination Vital Signs and I&O: Last Vital Signs Temp 98.2 F 10/03/16 07:00 Pulse 74 10/03/16 08:00 Resp 19 10/03/16 07:31 BP 96/54 L 10/03/16 08:00 Pulse Ox 90 L 10/03/16 08:00 Oxygen Pulse Oxygen Saturation 90 O2 Device Nasal Cannula Oxygen Flow Rate 2 Fraction of Inspired Oxygen ( 30 FIO2) Intake & Output 09/30/16 10/01/16 10/02/16 10/03/16 23:59 23:59 23:59 23:59 Intake Total 1470 4608 2488 319 Output Total 417 822 6544 350 Balance 795 3858 963 -31 Patient's weight 153.405 kg 153.405 kg 154.539 kg General: Oriented x3, No acute distress, Moderate distress, Weakness, Fatigue, Chills. negative: Alert HEENT: Normal (Normocephalic, atraumatic;EOMI.Sclera white, Nares patent, without discharge or bleeding. No oropharyngeal lesions or erythema. Mucous membranes are dry.) Neck: Non-tender, Full range of motion, Normal Trachea alignment, Normal inspection (No cervical lymphadenopathy. No supraclavicular lymphadenopathy.), No Masses palpable, Supple Lymphatics: Normal (No lymph node swelling or pain.) Respiratory: Accessory Muscle Use, Diminished, Rales, Tachypnea. negative: Excursion (Decreased excursion) Cardiovascular: Regular rate and rhythm (No bradycardia or tachycardia), Normal S1, No Gallops,Rubs/Murmurs, Normal S2, Good Pedal Pulses (DP pulses 2+ bilaterally) GI: Normal bowel sounds (normal active sounds), Soft (non-distended), Non tender , No hepatospenomegaly, No masses, Obese Extremities/Musculoskeletal: Normal pulses (DP pulses 2+ bilaterally), Edema ( Massive edema in hips and thighs and legs) Skin: Warm,Dry and Intact, No rashes, No significant lesion Neurological: Strength at 5/5 X4 ext (Motor 5/5 throughout.), Normal tone, Cranial nerves 3-12 NL ( 2-12 grossly intact.) Psych/Mental Status: Appropriate, Normal Affect Lab/DI/Studies Reviewed: Laboratory Results - last 24 hr 10/02/16 10/02/16 10/02/16 08:40 12:13 18:00 WBC RBC Hgb Hct MCV MCH MCHC RDW Plt Count MPV Puncture Site Lra pH 7.340 L pCO2 74.0 H* pO2 80.0 HCO3 39.9 H Total CO2 42.2 H Base Excess 10.9 H Spontaneous Rate FiO2 % 30 Mode BiPAP 16/8 Specimen Drawn By Dared Sodium Potassium Chloride Carbon Dioxide Anion Gap BUN Creatinine Estimated GFR (MDRD) Glucose POC Capillary Glucose 164 H 159 H Calculated Osmolality Calcium Crossmatch 10/02/16 10/03/16 10/03/16 20:50 03:35 05:14 WBC RBC Hgb Hct MCV MCH MCHC RDW Plt Count MPV Puncture Site Right radial pH 7.370 pCO2 70.0 H* pO2 80.0 HCO3 40.5 H Total CO2 42.6 H Base Excess 12.1 H Spontaneous Rate 16 FiO2 % 30 Mode BiPAP 16/8 Specimen Drawn By Canlar Sodium Potassium Chloride Carbon Dioxide Anion Gap BUN Creatinine Estimated GFR (MDRD) Glucose POC Capillary Glucose 167 H 167 H Calculated Osmolality Calcium Crossmatch 10/03/16 10/03/16 10/03/16 05:20 05:20 08:29 WBC 6.4 RBC 2.97 L Hgb 8.5 L Hct 26.5 L MCV 89 MCH 28.5 MCHC 32.0 L RDW 18.1 H Plt Count 289 MPV 8.4 Puncture Site pH pCO2 pO2 HCO3 Total CO2 Base Excess Spontaneous Rate FiO2 % Mode BiPAP Specimen Drawn By Sodium 138 Potassium 5.1 Chloride 96 L Carbon Dioxide 37 H Anion Gap 10 BUN 45 H Creatinine 0.80 Estimated GFR (MDRD) > 60 Glucose 149 H POC Capillary Glucose Calculated Osmolality 281 Calcium 7.3 L Crossmatch See Detail - Assessment (1) Acute respiratory failure with hypoxia Acute J96.01 - ACUTE RESPIRATORY FAILURE WITH HYPOXIA Comment/Plan: Patient continuing to have episodes of somnolence in the late afternoon where she is not arousable. I have requested that nursing staff obtain a stat ABG today if that occurs again as ABGs have not been obtained. She has been placed on BiPAP with good results in the past few days when these events occur. At her last hospitalization I spent a significant amount of time educating her about the importance of her BiPAP but apparently she has not been using it at the facility. She has admitted to not being compliant with BiPAP when she last left the hospital. Has also empirically been on Zosyn, respiratory status has been improving. (2) Fluid overload Acute E87.70 - FLUID OVERLOAD, UNSPECIFIED Qualifiers: Hypervolemia type: unspecified Qualified Code(s): E87.70 - Fluid overload, unspecified Comment/Plan: Lasix infusion held when her blood pressure dropped into the 90s 2 days ago. She received 3 L of fluid and is now massively volume overloaded again. At this point I think the best strategy would be to transfuse her 2 units of packed red blood cell to increase her oxygen carrying capacity and therefore increase her oncotic pressure as well allowing us to diurese her. (3) Anasarca Acute R60.1 - GENERALIZED EDEMA Comment/Plan: Patient to get 3 doses of Lasix today 1 now into with her blood transfusions. Will recheck her volume status in a.m. and consider Lasix infusion. (4) Hypercapnic respiratory failure Acute J96.92 - RESPIRATORY FAILURE, UNSPECIFIED WITH HYPERCAPNIA Qualifiers: Chronicity: acute on chronic Qualified Code(s): J96.22 - Acute and chronic respiratory failure with hypercapnia Comment/Plan: Patient respiratory status is now more stable, after being on continues BiPAP for ventilation. Her CO2 levels remained markedly elevated however. He continues to require BiPAP in the late afternoons. Will consult Dr. Meehan for further evaluation and management. (5) Pneumonia Acute J18.9 - PNEUMONIA, UNSPECIFIED ORGANISM Qualifiers: Pneumonia type: due to unspecified organism Laterality: right Lung location: middle lobe of lung Qualified Code(s): J18.9 - Pneumonia, unspecified organism Comment/Plan: Patient with no prior history of resistant organisms. Will switch her from Zosyn to ceftriaxone and azithromycin. Suspect that this is not pneumonia. 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 Will continue with sliding scale insulin coverage. ADA diet when eating. (7) GERD (gastroesophageal reflux disease) Chronic K21.9 - GASTRO-ESOPHAGEAL REFLUX DISEASE WITHOUT ESOPHAGITIS Qualifiers: Esophagitis presence: without esophagitis Qualified Code(s): K21.9 - Gastro -esophageal reflux disease without esophagitis Comment/Plan: Continue PPI (8) HTN (hypertension) Chronic I10 - ESSENTIAL (PRIMARY) HYPERTENSION Qualifiers: Hypertension type: essential hypertension Qualified Code(s): I10 - Essential (primary) hypertension Comment/Plan: Hold current blood pressure medications. Restart as needed. (9) Hypothyroid Chronic E03.9 - HYPOTHYROIDISM, UNSPECIFIED Qualifiers: Hypothyroidism type: acquired Qualified Code(s): E03.9 - Hypothyroidism, unspecified Comment/Plan: Continue Synthroid (10) Morbid obesity Chronic E66.01 - MORBID (SEVERE) OBESITY DUE TO EXCESS CALORIES Qualifiers: Obesity type: due to excess calories Qualified Code(s): E66.01 - Morbid ( severe) obesity due to excess calories Comment/Plan: Assist with ADLs and with transfers continue falls and safety precautions. Discussed with patient that she will need to Tramaine is 150 lb in order to feel that she can breathe significantly better. (11) AXEL (acute kidney injury) Resolved N17.9 - ACUTE KIDNEY FAILURE, UNSPECIFIED Comment/Plan: Renal function has returned to normal. Discontinue hydration. (12) DNR (do not resuscitate) discussion Acute Z71.89 - OTHER SPECIFIED COUNSELING Comment/Plan: Patient presented with her options and prognosis which are limited and very guarded. She wishes to continue to be a full code but is interested in hospice care at discharge. - Plan Transfuse 2 units of packed red blood cells in order to improve oncotic pressure and allow for Lasix infusion. Check ABG if patient becomes confused this afternoon. Check portable chest x-ray today. Fluid restriction. Consult Dr. Meehan. Patient remains acutely and critically ill with severe hypercarbia not responsive to current BiPAP therapy. Due to the presence of and/or the risk of deterioration, my attendance to this patient required critical care time, including assessment/reassessment, documentation, ordering and interpreting ancillary studies, discussion with staff and consultants,patient and family, and excludes time spent on separately billable procedures. In summary, this patient is acutely and critically ill. The patient requires treatment of vital organ failure and measures to prevent further life-threatening deterioration of condition. Disposition Plan: Likely back to shelter facility when improved Case Care Discussed with: Patient, Nursing Staff Education/Counseling Given To: Patient Education/Counseling Given Regarding: Diagnosis, Treatment, Prognosis, Disposition Plan Total Time: 55 minutes Critical Care: Yes Couseling Time (>50% in counseling/coordination): No
[2016-10-03] MEDS: GUAIFENESIN 600 MG LA TAB PO SCH ×2 (11:01→20:14)
[2016-10-03] MEDS: SENNA CONCENTRATE TAB PO SCH (11:01)
[2016-10-03] MEDS: PEG-ELECTROLYTE 17 GM PACK PO SCH (11:01)
[2016-10-03] MEDS: VENLAFAXINE XR 75 MG CAP PO SCH (11:01)
[2016-10-03] MEDS: RANITIDINE 150 MG TAB PO SCH (11:01)
[2016-10-03] MEDS: NS IV SCH (11:50)
[2016-10-03] MEDS: AZITHROMYCIN IV SCH (11:50)
[2016-10-03] MEDS: PROBIOTIC BLEND TAB PO SCH ×2 (12:57→17:21)
[2016-10-03] MEDS: VITAMINS, MULTIPLE CAP PO SCH (12:57)
[2016-10-03] MEDS: ACETAMINOPHEN 325 MG/TAB TABLET PO PRN (17:21)
[2016-10-03] MEDS: ENOXAPARIN 80 MG/0.8 ML PFS SQ SCH (17:22)
[2016-10-03] MEDS: FUROSEMIDE 40 MG/4 ML VIAL IV SCH ×2 (17:22→20:19)
--- NOTE | 2016-10-03 19:17 | HIMCONS ---
DATE OF CONSULT: REQUESTING PHYSICIAN: Skylar Huang MD REASON FOR CONSULTATION: Respiratory failure. HISTORY OF PRESENT ILLNESS: This patient is a 56-year-old morbidly obese lady, well known to me from previous hospital visits. The patient is a resident of [facility]. She was brought in to the hospital because she was unresponsive. The patient does not remember what happened; however, she says that her breathing has been much better at this time than it has been in the past admissions. There is no other history available except that the patient complains lot of backache at this time. The patient has been on antibiotics while in the hospital and has been improving slowly. PAST MEDICAL HISTORY: Significant for hypertension, hypercholesterolemia, valvular heart disease, COPD, renal disease, gastroesophageal reflux disease, and irritable bowel syndrome, osteoarthritis, cancer, diabetes, anxiety. SURGICAL HISTORY: Significant for cholecystectomy, thyroid neck exploration x2, shoulder and thigh abscess, and ectopic . MEDICATIONS: In the chart were noted. ALLERGIES: THE PATIENT IS ALLERGIC TO KEFLEX, ERYTHROMYCIN BASE, AND MOXIFLOXACIN. FAMILY HISTORY: Significant for diabetes and hypertension in near family members. SOCIAL HISTORY: The patient has no history of smoking, drinking, or drug abuse. She lives in the residential. REVIEW OF SYSTEMS: Entire review of systems is negative except for those mentioned in the history of present illness. PHYSICAL EXAMINATION: VITAL SIGNS: Temperature is 98 degrees Fahrenheit, pulse is 80, respiratory rate is rate 20, blood pressure 126/55, pulse ox 99% on 2 liters nasal cannula. CHEST: Clear to auscultate bilaterally. No wheezes, rales, rhonchi. HEART: S1, S2. Regular. The patient has pansystolic murmur. EXTREMITIES: No clubbing, cyanosis. The patient has 1+ bilateral ankle edema. ABDOMEN: Soft and nontender. Bowel sounds are present. Hepatosplenomegaly is absent. NEURO: Grossly nonfocal. The patient is moving all extremities. LABORATORY DATA: White count 6.4, hemoglobin 8.5, hematocrit is 26.5, and platelets are 289. Blood gas done earlier today pH 7.37, pCO2 of 70, PO2 of 80 on 16 x 8 BiPAP with 30% oxygen. Sodium 138, potassium 5.1, chloride 96, CO2 is 37, BUN 45, creatinine 0.8, glucose 149. IMAGING REPORTS: Chest x-ray was seen personally. The patient seems to have no acute infiltrate. Mild pulmonary vascular congestion was noted. IMPRESSION: 1. [id number] respiratory failure which is multifactorial especially obesity, hypoventilation syndrome, asthma exacerbation, and mild congestive heart failure. 2. Diabetes, gastroesophageal reflux disease, hypertension. PLAN: The patient is currently on Rocephin and Zithromax and has been relatively stable. Continue DVT and GI prophylaxis, levothyroxine, methadone, and other supportive care. Continue nebulizers. I would get chest x-ray, blood gas, and BMP in the morning. Since the chest x-ray done previously showed a pulmonary vascular congestion, I have started the patient on gentle dose of Lasix at 40 mg IV q.12 hours. I would follow the patient closely. Prognosis is guarded. As far as intermission coordinator issues are concerned, the patient needs to be on BiPAP while she is sleeping. Thank you much for the consultation. I will follow the patient with you. The patient remains critically ill. She is in danger of getting worse and getting intubated. Time spent approximately 75 minutes. [id number]
[2016-10-03] MEDS: ATORVASTATIN 80 MG TAB PO SCH (20:13)
[2016-10-03] MEDS: MAGNESIUM HYDROXIDE 30 ML BOTTLE PO SCH (20:15)
[2016-10-03] MEDS: BISACODYL 10 MG SUPP PR SCH (20:20)
[2016-10-03] MEDS: CHLORHEXIDINE (HIBICLENS) 4 OZ BOTTLE TOP SCH (20:20)
[2016-10-03] MEDS: GLARGINE INSULIN (LANTUS) 100 UNITS/ML PEN SQ SCH (20:25)
[2016-10-03] MEDS: OXYCODONE HCL 5 MG TABLET PO PRN (20:53)
[2016-10-04] MEDS: Albuterol/Ipratropium Neb 3 ML NEB NEB SCH ×4 (03:05→19:17)
[2016-10-04 05:57] LABS: ALLEN'S TEST PASS; TCO2 44.5 MMOL/L (23-27)
[2016-10-04] MEDS: METHADONE 10 MG TAB PO SCH ×4 (05:59→22:45)
[2016-10-04 06:00] LABS: ABG Draw Site Right Radial; BI-PAP 16/2 cm H2O
[2016-10-04] MEDS: GABAPENTIN 100 MG CAP PO SCH ×3 (06:01→22:11)
[2016-10-04] MEDS: PANTOPRAZOLE 40 MG TAB PO SCH (06:02)
[2016-10-04] MEDS: SODIUM CHLORIDE 0.9% 3 ML FLUSH FLUSH SCH ×2 (06:02→17:43)
[2016-10-04] MEDS: SODIUM CHLORIDE 0.9% 5 ML FLUSH FLUSH SCH ×2 (06:03→18:00)
[2016-10-04] MEDS: LEVOTHYROXINE 200 MCG (0.2 MG) TAB PO SCH (06:04)
[2016-10-04] MEDS: DICYCLOMINE 20 MG TAB PO SCH ×4 (06:05→22:10)
[2016-10-04] MEDS: INSULIN ASPART 100 UNITS/ML PEN SQ SCH ×3 (06:06→17:59)
[2016-10-04] MEDS: REGULAR INSULIN 100 UNITS/ML - 3 ML VIAL SQ SCH ×4 (06:08→22:31)
[2016-10-04 06:18] LABS: MPV 8.4 fL (7.4-10.4)
[2016-10-04 06:32] LABS: BLOOD UREA NITROGEN 37 MG/DL (7-17); CALCIUM 7.2 MG/DL (8.4-10.2); CALCULATED OSMOLALITY 281 MOs/Kg (270-290); CHLORIDE 94 mEq/L (98-107); GLUCOSE 156 MG/DL (70-99); SODIUM LEVEL 140 mEq/L (137-146)
[2016-10-04 06:52] LABS: SEG NEUTROPHIL 77 % (45-76); TOTAL CELL COUNT 100
--- NOTE | 2016-10-04 07:50 | DIRPT ---
CLINICAL DATA: Respiratory failure. EXAM: PORTABLE CHEST 1 VIEW COMPARISON: 10/02/2016 . FINDINGS: Right IJ line in stable position. Cardiomegaly with normal pulmonary vascularity. Right base atelectasis and/or infiltrate. No pleural effusion or pneumothorax IMPRESSION: 1. Right IJ line in stable position. 2. Cardiomegaly. No pulmonary venous congestion. 3. Right base atelectasis and/or infiltrate. Small right pleural effusion . Electronically Signed By: Guero Soto On: 10/04/2016 07:47
[2016-10-04] MEDS: CALCIUM CARBONATE + VITAMIN D 500 MG TAB PO SCH ×3 (07:54→17:54)
[2016-10-04] MEDS: GUAIFENESIN 600 MG LA TAB PO SCH ×2 (07:54→22:10)
[2016-10-04] MEDS: SENNA CONCENTRATE TAB PO SCH (07:55)
[2016-10-04] MEDS: RANITIDINE 150 MG TAB PO SCH (07:55)
[2016-10-04] MEDS: VENLAFAXINE XR 75 MG CAP PO SCH (07:56)
[2016-10-04] MEDS: FUROSEMIDE 40 MG/4 ML VIAL IV SCH ×2 (07:56→15:58)
[2016-10-04] MEDS: CEFTRIAXONE 1 GM in D5W 100 ML IV SCH (07:58)
[2016-10-04] MEDS ORDERED: ACETAZOLAMIDE 500 MG IV SCH ×2 (08:00)
[2016-10-04] MEDS ORDERED: MUPIROCIN 2% OINT 22 GM TUBE TOP SCH (08:00)
[2016-10-04] MEDS ORDERED: ACETAZOLAMIDE 250 MG TAB PO ONE (08:00)
[2016-10-04] MEDS: PEG-ELECTROLYTE 17 GM PACK PO SCH (08:07)
--- NOTE | 2016-10-04 08:07 | GENMEDPROG ---
Chief Complaint: Nonambulatory for years and has been bed bound. Care remember the last time she is able stand up. Has a sacral wound. Will get physical therapy involved with that. Notes Reviewed: Yes Events from last night noted and discussed with Clinical Staff Current Medication List: Reviewed Currently: Reports: PETIT SOB. Denies: Ambulating DVT Prophylaxis: Yes - Physical Examination Vital Signs and I&O: Last Vital Signs Temp 98 F 10/04/16 07:00 Pulse 72 10/04/16 07:00 Resp 20 10/04/16 07:00 BP 147/68 10/04/16 07:00 Pulse Ox 99 10/04/16 07:00 Oxygen Pulse Oxygen Saturation 99 O2 Device Nasal Cannula Oxygen Flow Rate 2 Fraction of Inspired Oxygen ( 25 FIO2) Intake & Output 10/01/16 10/02/16 10/03/16 10/04/16 23:59 23:59 23:59 23:59 Intake Total 4608 2488 1609 24 Output Total 750 1525 2800 3150 Balance 3853 593 -1878 -6413 Patient's weight 153.405 kg 153.405 kg 154.539 kg 154.539 kg General: Oriented x3, No acute distress, Moderate distress, Weakness, Fatigue, Chills. negative: Alert HEENT: Normal (Normocephalic, atraumatic;EOMI.Sclera white, Nares patent, without discharge or bleeding. No oropharyngeal lesions or erythema. Mucous membranes are dry.) Neck: Non-tender, Full range of motion, Normal Trachea alignment, Normal inspection (No cervical lymphadenopathy. No supraclavicular lymphadenopathy.), No Masses palpable, Supple Lymphatics: Normal (No lymph node swelling or pain.) Respiratory: Diminished. negative: Rales, Rhonchi, Wheezes, Excursion ( Decreased excursion) Cardiovascular: Regular rate and rhythm (No bradycardia or tachycardia), Normal S1, No Gallops,Rubs/Murmurs, Normal S2 GI: Normal bowel sounds (normal active sounds), Soft (non-distended), Non tender , No hepatospenomegaly, No masses, Obese (Morbidly obese with BMI 58.5) Extremities/Musculoskeletal: Normal pulses (DP pulses 2+ bilaterally), Edema ( Massive edema in hips and thighs and legs) Skin: Warm,Dry and Intact, No rashes, No significant lesion Neurological: Strength at 5/5 X4 ext (Motor 5/5 throughout.), Normal tone, Cranial nerves 3-12 NL ( 2-12 grossly intact.) Psych/Mental Status: Appropriate, Normal Affect Lab/DI/Studies Reviewed: 10/04/16 05:40 10/04/16 05:40 Laboratory Results - last 24 hr 10/03/16 10/03/16 10/03/16 09:00 12:30 17:33 WBC RBC Hgb Hct MCV MCH MCHC RDW Plt Count MPV Neut % (Auto) Lymph % (Auto) [place] % (Auto) Eos % (Auto) Baso % (Auto) Absolute Neuts (auto) Absolute Lymphs (auto) Seg Neuts % (Manual) Band Neutrophils % Lymphocytes % (Manual) Monocytes % (Manual) Eosinophils % (Manual) Absolute Neutrophils Absolute Lymphocytes Platelet Estimate RBC Morphology Puncture Site pH pCO2 pO2 HCO3 Total CO2 Base Excess FiO2 % Mode BiPAP Specimen Drawn By Sodium Potassium Chloride Carbon Dioxide Anion Gap BUN Creatinine Estimated GFR (MDRD) Glucose POC Capillary Glucose 119 H 177 H Calculated Osmolality Calcium Blood Type A POSITIVE Antibody Screen Positive Antibody Identification Anti-K Antigen Identification K Antigen - NEGATIVE Crossmatch See Detail 10/03/16 10/04/16 10/04/16 20:01 05:02 05:40 WBC 6.0 RBC 3.68 L Hgb 10.5 L D Hct 32.6 L MCV 89 MCH 28.5 MCHC 32.2 L RDW 17.5 H Plt Count 276 MPV 8.4 Neut % (Auto) Cancelled Lymph % (Auto) Cancelled [place] % (Auto) Cancelled Eos % (Auto) Cancelled Baso % (Auto) Cancelled Absolute Neuts (auto) Cancelled Absolute Lymphs (auto) Cancelled Seg Neuts % (Manual) 77 H Band Neutrophils % 1 Lymphocytes % (Manual) 9 L Monocytes % (Manual) 12 H Eosinophils % (Manual) 1 Absolute Neutrophils 4.68 Absolute Lymphocytes 0.54 L Platelet Estimate Norm RBC Morphology Norm Puncture Site pH pCO2 pO2 HCO3 Total CO2 Base Excess FiO2 % Mode BiPAP Specimen Drawn By Sodium Potassium Chloride Carbon Dioxide Anion Gap BUN Creatinine Estimated GFR (MDRD) Glucose POC Capillary Glucose 218 H 154 H Calculated Osmolality Calcium Blood Type Antibody Screen Antibody Identification Antigen Identification Crossmatch 10/04/16 10/04/16 05:40 05:45 WBC RBC Hgb Hct MCV MCH MCHC RDW Plt Count MPV Neut % (Auto) Lymph % (Auto) [place] % (Auto) Eos % (Auto) Baso % (Auto) Absolute Neuts (auto) Absolute Lymphs (auto) Seg Neuts % (Manual) Band Neutrophils % Lymphocytes % (Manual) Monocytes % (Manual) Eosinophils % (Manual) Absolute Neutrophils Absolute Lymphocytes Platelet Estimate RBC Morphology Puncture Site Right radial pH 7.390 pCO2 70.0 H* pO2 83.0 HCO3 42.4 H Total CO2 44.5 H Base Excess 14.0 H FiO2 % 25% Mode BiPAP 16/2 Specimen Drawn By Stana Sodium 140 Potassium 5.2 H Chloride 94 L Carbon Dioxide 37 H Anion Gap 14 BUN 37 H Creatinine 0.70 Estimated GFR (MDRD) > 60 Glucose 156 H POC Capillary Glucose Calculated Osmolality 281 Calcium 7.2 L Blood Type Antibody Screen Antibody Identification Antigen Identification Crossmatch - Assessment (1) Hypercapnic respiratory failure Acute J96.92 - RESPIRATORY FAILURE, UNSPECIFIED WITH HYPERCAPNIA Qualifiers: Chronicity: acute on chronic Qualified Code(s): J96.22 - Acute and chronic respiratory failure with hypercapnia Comment/Plan: CO2 remains elevated and will start Diamox IV or orally as she is able to tolerate 3 times a week. Weaning O2 and will transfer to intermediate when bed available. (2) Pneumonia Acute J18.9 - PNEUMONIA, UNSPECIFIED ORGANISM Qualifiers: Pneumonia type: due to unspecified organism Laterality: right Lung location: middle lobe of lung Qualified Code(s): J18.9 - Pneumonia, unspecified organism Comment/Plan: Patient with no prior history of resistant organisms other than the MRSA in her nares. Presently getting ceftriaxone and azithromycin. Still has evidence of right basilar atelectasis and elevated right hemidiaphragm. White count has normalized. (3) DM2 (diabetes mellitus, type 2) Chronic E11.9 - TYPE 2 DIABETES MELLITUS WITHOUT COMPLICATIONS Qualifiers: Diabetes mellitus complication status: with neurologic complications Diabetes mellitus complication detail: with other neurological complication Diabetes mellitus assistant terminal manager insulin use: with [facility] use Qualified Code(s) : E11.49 - Type 2 diabetes mellitus with other diabetic neurological complication; Z79.4 - halfway (current) use of insulin Comment/Plan: Patient has morbid obesity. Will continue with sliding scale insulin coverage. ADA diet when eating. (4) GERD (gastroesophageal reflux disease) Chronic K21.9 - GASTRO-ESOPHAGEAL REFLUX DISEASE WITHOUT ESOPHAGITIS Qualifiers: Esophagitis presence: without esophagitis Qualified Code(s): K21.9 - Gastro -esophageal reflux disease without esophagitis Comment/Plan: Continue PPI (5) HTN (hypertension) Chronic I10 - ESSENTIAL (PRIMARY) HYPERTENSION Qualifiers: Hypertension type: essential hypertension Qualified Code(s): I10 - Essential (primary) hypertension Comment/Plan: Hold current blood pressure medications. Restart as needed. (6) Hypothyroid Chronic E03.9 - HYPOTHYROIDISM, UNSPECIFIED Qualifiers: Hypothyroidism type: acquired Qualified Code(s): E03.9 - Hypothyroidism, unspecified Comment/Plan: Continue Synthroid (7) Morbid obesity with BMI of 50.0-59.9, adult Acute E66.01 - MORBID (SEVERE) OBESITY DUE TO EXCESS CALORIES; Z68.43 - BODY MASS INDEX (BMI) 50-59.9 , ADULT Comment/Plan: Calorie restricted diet associated with diabetes. (8) Ambulatory dysfunction Chronic R26.2 - DIFFICULTY IN WALKING, NOT ELSEWHERE CLASSIFIED Comment/Plan : Patient is nonambulatory has a sacral decubitus and will get physical therapy to evaluate. (9) Sacral decubitus ulcer, stage II Chronic L89.152 - PRESSURE ULCER OF SACRAL REGION, STAGE 2 Comment/Plan: As described and will get physical therapy to evaluate and treat. (10) Anasarca Acute R60.1 - GENERALIZED EDEMA Comment/Plan: Patient to get 3 doses of Lasix today 1 now into with her blood transfusions. Will recheck her volume status in a.m. and consider Lasix infusion. Disposition Plan: Likely back to [facility] facility when improved Case Care Discussed with: Patient, Nursing Staff, Resource Management Education/Counseling Given To: Patient Education/Counseling Given Regarding: Diagnosis Total Time: 38 minutes Critical Care: No Code: 06235 (12+)
--- NOTE | 2016-10-04 09:37 | PCM.PULM ---
Chief Complaint: Respiratory failure acute on chronic with hypoxia Morbid obesity Ambulatory dysfunction Pneumonia Decubital ulcer UTI Patient in Intensive care unit bed alert and responsive. Uses BIPAP at night. Current medication list reviewed:yes Notes reviewed:yes, Events from last night noted and discussed with Clinical Staff DVT prophylaxis:yes - Physical Examination Vital Signs and I&O: Last Vital Signs Temp 98 F 10/04/16 07:00 Pulse 75 10/04/16 09:00 Resp 20 10/04/16 08:31 BP 133/60 10/04/16 09:00 Pulse Ox 97 10/04/16 09:00 Oxygen Pulse Oxygen Saturation 97 O2 Device Nasal Cannula Oxygen Flow Rate 2 Fraction of Inspired Oxygen ( 25 FIO2) Intake & Output 10/01/16 10/02/16 10/03/16 10/04/16 23:59 23:59 23:59 23:59 Intake Total 4608 2488 1609 24 Output Total 750 1525 2800 3150 Balance 3858 122 -[phone] -6608 Patient's weight 153.405 kg 153.405 kg 154.539 kg 154.539 kg General: Alert, Oriented x3, Cooperative, No acute distress, Obese, Fatigue Respiratory: Diminished Cardiovascular: Regular rate, Regular rate and rhythm, Normal S1, No Gallops, Rubs/Murmurs, Normal S2 GI: Normal bowel sounds, Soft, Non tender, No hepatospenomegaly, No masses Extremities/Musculoskeletal: Normal pulses, Edema (BLEs 1+ edema) Skin: Warm,Dry and Intact, No rashes, No significant lesion, Ulceration ( decubital ulcer) Neurological: Normal speech Psych/Mental Status: Appropriate Result Diagrams: 10/04/16 05:40 10/04/16 05:40 Labs (last 24 hours): Laboratory Results - last 24 hr 10/03/16 10/03/16 10/03/16 09:00 12:30 17:33 WBC RBC Hgb Hct MCV MCH MCHC RDW Plt Count MPV Neut % (Auto) Lymph % (Auto) [place] % (Auto) Eos % (Auto) Baso % (Auto) Absolute Neuts (auto) Absolute Lymphs (auto) Seg Neuts % (Manual) Band Neutrophils % Lymphocytes % (Manual) Monocytes % (Manual) Eosinophils % (Manual) Absolute Neutrophils Absolute Lymphocytes Platelet Estimate RBC Morphology Puncture Site pH pCO2 pO2 HCO3 Total CO2 Base Excess FiO2 % Mode BiPAP Specimen Drawn By Sodium Potassium Chloride Carbon Dioxide Anion Gap BUN Creatinine Estimated GFR (MDRD) Glucose POC Capillary Glucose 119 H 177 H Calculated Osmolality Calcium Blood Type A POSITIVE Antibody Screen Positive Antibody Identification Anti-K Antigen Identification K Antigen - NEGATIVE Crossmatch See Detail 10/03/16 10/04/16 10/04/16 20:01 05:02 05:40 WBC 6.0 RBC 3.68 L Hgb 10.5 L D Hct 32.6 L MCV 89 MCH 28.5 MCHC 32.2 L RDW 17.5 H Plt Count 276 MPV 8.4 Neut % (Auto) Cancelled Lymph % (Auto) Cancelled [place] % (Auto) Cancelled Eos % (Auto) Cancelled Baso % (Auto) Cancelled Absolute Neuts (auto) Cancelled Absolute Lymphs (auto) Cancelled Seg Neuts % (Manual) 77 H Band Neutrophils % 1 Lymphocytes % (Manual) 9 L Monocytes % (Manual) 12 H Eosinophils % (Manual) 1 Absolute Neutrophils 4.68 Absolute Lymphocytes 0.54 L Platelet Estimate Norm RBC Morphology Norm Puncture Site pH pCO2 pO2 HCO3 Total CO2 Base Excess FiO2 % Mode BiPAP Specimen Drawn By Sodium Potassium Chloride Carbon Dioxide Anion Gap BUN Creatinine Estimated GFR (MDRD) Glucose POC Capillary Glucose 218 H 154 H Calculated Osmolality Calcium Blood Type Antibody Screen Antibody Identification Antigen Identification Crossmatch 10/04/16 10/04/16 05:40 05:45 WBC RBC Hgb Hct MCV MCH MCHC RDW Plt Count MPV Neut % (Auto) Lymph % (Auto) [place] % (Auto) Eos % (Auto) Baso % (Auto) Absolute Neuts (auto) Absolute Lymphs (auto) Seg Neuts % (Manual) Band Neutrophils % Lymphocytes % (Manual) Monocytes % (Manual) Eosinophils % (Manual) Absolute Neutrophils Absolute Lymphocytes Platelet Estimate RBC Morphology Puncture Site Right radial pH 7.390 pCO2 70.0 H* pO2 83.0 HCO3 42.4 H Total CO2 44.5 H Base Excess 14.0 H FiO2 % 25% Mode BiPAP 16/11 Specimen Drawn By Stana Sodium 140 Potassium 5.2 H Chloride 94 L Carbon Dioxide 37 H Anion Gap 14 BUN 37 H Creatinine 0.70 Estimated GFR (MDRD) > 60 Glucose 156 H POC Capillary Glucose Calculated Osmolality 281 Calcium 7.2 L Blood Type Antibody Screen Antibody Identification Antigen Identification Crossmatch Lab/DI/Studies Reviewed: EKG:NSR, NO ST or ST wave changes noted Cxray: 1 view Chest x-ray was seen personally patient has right basal atelectasis with small right-sided effusion and some pulmonary vascular congestion Medications: Bisacodyl (Dulcolax) 10 mg TN HS [facility] Stop: 10/13/16 20:59 Last Admin: 10/03/16 20:20 Dose: 10 mg Mupirocin (Bactroban) 15 gm TOP TID Stop: 10/04/16 08:05 Oxycodone HCl (Oxycodone Immediate Release (Oxyir)) 15 mg PO Q4H PRN PRN Reason: MODERATE TO SEVERE PAIN Stop: 10/13/16 18:25 Last Admin: 10/03/16 20:53 Dose: 15 mg Pantoprazole Sodium (Protonix) 40 mg PO 0600 [facility] Stop: 10/14/16 05:59 Last Admin: 10/04/16 06:02 Dose: 40 mg Ranitidine HCl (Zantac) 150 mg PO DAILY [facility] Stop: 10/14/16 08:59 Last Admin: 10/04/16 07:55 Dose: 150 mg Acetaminophen (Tylenol Suppository) 650 mg TN Q6H PRN; Protocol PRN Reason: Mild Pain or Fever above 100.4 Stop: 10/13/16 16:59 Acetaminophen (Tylenol Tablet) 650 mg PO Q6H PRN; Protocol PRN Reason: Mild Pain or Fever above 100.4 Stop: 10/13/16 16:59 Last Admin: 10/03/16 17:21 Dose: 650 mg Acetazolamide (Diamox) 500 mg PO TUTHSA@0900 [facility] Stop: 10/18/16 16:59 Al Hydrox/Mg Hydrox/Simethicone (Maalox Plus, Mylanta) 30 ml PO Q3H PRN PRN Reason: Heartburn or Indigestion Stop: 10/13/16 16:59 Albuterol (Proventil, Ventolin) 3 ml NEB Q2H PRN PRN Reason: Wheezing Stop: 10/13/16 16:59 Albuterol/Ipratropium (Duoneb) 3 ml NEB RTQ6 [facility] Stop: 10/13/16 16:59 Last Admin: 10/04/16 08:35 Dose: 3 ml Azithromycin 250 mg/ Sodium (Chloride) 150 mls @ 150 mls/hr IV Q24H [facility] Stop: 10/04/16 12:59 Azithromycin (Zithromax) 500 mg PO DAILY [facility] Stop: 10/10/16 08:59 Calcium Carbonate (Oscal With Vitamin D) 500 mg PO TIDWM [facility] Stop: 10/14/16 07:29 Last Admin: 10/04/16 07:54 Dose: 500 mg Ceftriaxone Sodium 1 gm/ (Dextrose) 100 mls @ 100 mls/hr IV Q24H [facility] Stop: 10/09/16 09:59 Last Admin: 10/04/16 07:58 Dose: 100 mls/hr Chlorphenir/Hydrocodone Polistirex (Tussionex) 5 ml PO BID PRN PRN Reason: Cough - 1ST OPTION Stop: 10/13/16 16:59 Enoxaparin Sodium (Lovenox) 75 mg SQ 1800 [facility] Stop: 10/13/16 18:59 Last Admin: 10/03/16 17:22 Dose: 75 mg Furosemide (Lasix) 40 mg IV LASBID [facility] Stop: 10/17/16 16:59 Last Admin: 10/04/16 07:56 Dose: 40 mg Gabapentin (Neurontin) 200 mg PO TID [facility] Stop: 10/13/16 20:59 Last Admin: 10/04/16 06:01 Dose: 200 mg Guaifenesin (Mucinex) 1,200 mg PO BID [facility] Stop: 10/13/16 20:59 Last Admin: 10/04/16 07:54 Dose: 1,200 mg Insulin Aspart (Novolog) 10 units SQ TIDAC [facility] Stop: 10/14/16 06:59 Last Admin: 10/04/16 06:06 Dose: 10 units Insulin Human Regular (Humulin R) 0 units SQ ACHS [facility] PRN Reason: Protocol Stop: 10/13/16 16:59 Last Admin: 10/04/16 06:08 Dose: 3 units Methadone HCl (Dolophine) 7.5 mg PO 1800 [facility] Stop: 10/06/16 17:59 Last Admin: 10/03/16 17:21 Dose: 7.5 mg Methadone HCl (Dolophine) 5 mg PO 0000,0600,1200 [facility] Stop: 10/07/16 00:00 Last Admin: 10/04/16 05:59 Dose: 5 mg Venlafaxine HCl (Effexor Xr) 225 mg PO DAILY [facility] Stop: 10/14/16 08:59 Last Admin: 10/04/16 07:56 Dose: 225 mg Sodium Phosphate (Fleet Enema) 4.5 oz TN Q72H PRN PRN Reason: Constipation Despite Laxatives Stop: 10/13/16 16:59 - Assessment/Plan (1) Acute respiratory failure with hypoxia Acute J96.01 - ACUTE RESPIRATORY FAILURE WITH HYPOXIA Comment/Plan: Patient has been feeling somewhat better I would continue the current treatment continue Lasix and Diamox on this patient and attempt to diurese her significantly so that she feels better her chest x-ray is consistent with pulmonary vascular congestion I would continue antibiotics including Rocephin and Zithromax and continue all other supportive care prognosis is guarded because of her morbid obesity however patient needs to be on BiPAP for her obesity hypoventilation syndrome as well as for her sleep apnea (2) Morbid obesity with BMI of 50.0-59.9, adult Acute E66.01 - MORBID (SEVERE) OBESITY DUE TO EXCESS CALORIES; Z68.43 - BODY MASS INDEX (BMI) 50-59.9 , ADULT Comment/Plan: Continue the current treatment (3) Ambulatory dysfunction Chronic R26.2 - DIFFICULTY IN WALKING, NOT ELSEWHERE CLASSIFIED Comment/Plan: No change in current treatment I personally saw and evaluated the patient.: Yes Case Care Discussed with: Patient Education/Counseling Given To: Patient Education/Counseling Given Regarding: Diagnosis, Treatment, Prognosis, Follow Up , Disposition Plan
[2016-10-04] MEDS: PROBIOTIC BLEND TAB PO SCH ×2 (11:21→17:54)
[2016-10-04] MEDS: VITAMINS, MULTIPLE CAP PO SCH (11:21)
[2016-10-04] MEDS ORDERED: NS IV SCH (12:00)
[2016-10-04] MEDS ORDERED: AZITHROMYCIN IV SCH (12:00)
[2016-10-04] MEDS: MUPIROCIN 2% OINT 22 GM TUBE TOP SCH ×2 (15:57→22:30)
[2016-10-04] MEDS: ENOXAPARIN 80 MG/0.8 ML PFS SQ SCH (18:00)
[2016-10-04] MEDS: OXYCODONE HCL 5 MG TABLET PO PRN (22:09)
[2016-10-04] MEDS: ATORVASTATIN 80 MG TAB PO SCH (22:10)
[2016-10-04] MEDS: MAGNESIUM HYDROXIDE 30 ML BOTTLE PO SCH (22:12)
[2016-10-04] MEDS: BISACODYL 10 MG SUPP PR SCH (22:13)
[2016-10-04] MEDS: GLARGINE INSULIN (LANTUS) 100 UNITS/ML PEN SQ SCH (22:31)
[2016-10-04] MEDS ORDERED: GLARGINE INSULIN (LANTUS) 100 UNITS/ML PEN SQ SCH (23:00)
[2016-10-05] MEDS: Albuterol/Ipratropium Neb 3 ML NEB NEB SCH ×3 (02:57→13:54)
[2016-10-05 05:25] LABS: ALLEN'S TEST PASS; BEb 13.2 (+/- 2); TCO2 44.9 MMOL/L (23-27)
[2016-10-05 05:29] LABS: ABG Draw Site Right Radial; BI-PAP 16/8 cm H2O
[2016-10-05 05:35] LABS: MPV 8.4 fL (7.4-10.4)
[2016-10-05 05:48] LABS: BLOOD UREA NITROGEN 30 MG/DL (7-17); CALCIUM 7.3 MG/DL (8.4-10.2); CALCULATED OSMOLALITY 276 MOs/Kg (270-290); CHLORIDE 93 mEq/L (98-107); GLUCOSE 140 MG/DL (70-99); SODIUM LEVEL 139 mEq/L (137-146)
[2016-10-05] MEDS: MUPIROCIN 2% OINT 22 GM TUBE TOP SCH (06:07)
[2016-10-05] MEDS: DICYCLOMINE 20 MG TAB PO SCH ×2 (06:07→12:28)
[2016-10-05] MEDS: SODIUM CHLORIDE 0.9% 5 ML FLUSH FLUSH SCH (06:07)
[2016-10-05] MEDS: LEVOTHYROXINE 200 MCG (0.2 MG) TAB PO SCH (06:07)
[2016-10-05] MEDS: GABAPENTIN 100 MG CAP PO SCH (06:07)
[2016-10-05] MEDS: PANTOPRAZOLE 40 MG TAB PO SCH (06:07)
[2016-10-05] MEDS: SODIUM CHLORIDE 0.9% 3 ML FLUSH FLUSH SCH (06:07)
[2016-10-05] MEDS: METHADONE 10 MG TAB PO SCH ×2 (06:08→12:37)
[2016-10-05] MEDS: INSULIN ASPART 100 UNITS/ML PEN SQ SCH ×2 (06:15→12:33)
[2016-10-05] MEDS: REGULAR INSULIN 100 UNITS/ML - 3 ML VIAL SQ SCH ×2 (06:17→12:30)
[2016-10-05 06:18] VITALS: BMI 58.7
[2016-10-05] MEDS ORDERED: ACETAZOLAMIDE 250 MG TAB PO SCH (09:00)
[2016-10-05] MEDS ORDERED: AZITHROMYCIN 250 MG TAB PO SCH (09:00)
[2016-10-05] MEDS: FUROSEMIDE 40 MG/4 ML VIAL IV SCH (09:47)
[2016-10-05] MEDS: CALCIUM CARBONATE + VITAMIN D 500 MG TAB PO SCH ×2 (09:47→12:29)
[2016-10-05] MEDS: VENLAFAXINE XR 75 MG CAP PO SCH (09:48)
[2016-10-05] MEDS: PEG-ELECTROLYTE 17 GM PACK PO SCH (09:48)
[2016-10-05] MEDS: GUAIFENESIN 600 MG LA TAB PO SCH (09:48)
[2016-10-05] MEDS: RANITIDINE 150 MG TAB PO SCH (09:49)
[2016-10-05] MEDS: SENNA CONCENTRATE TAB PO SCH (09:49)
[2016-10-05] MEDS: OXYCODONE HCL 5 MG TABLET PO PRN (10:02)
[2016-10-05] MEDS: CEFTRIAXONE 1 GM in D5W 100 ML IV SCH (10:58)
--- NOTE | 2016-10-05 12:17 | PCM.DCS92 ---
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 Presently getting ceftriaxone and azithromycin. Still has evidence of right basilar atelectasis and elevated right hemidiaphragm. White count has normalized. (2) Hypercapnic respiratory failure Acute J96.92 - RESPIRATORY FAILURE, UNSPECIFIED WITH HYPERCAPNIA Present on Admission: Yes acute on chronic J96.22 - Acute and chronic respiratory failure with hypercapnia Comment: CO2 remains elevated and will start Diamox IV or orally as she is able to tolerate 3 times a week. Weaning O2 and [facility]. (3) DM2 (diabetes mellitus, type 2) Chronic E11.9 - TYPE 2 DIABETES MELLITUS WITHOUT COMPLICATIONS Present on Admission: Yes with neurologic complications with other neurological complication with fpc use E11.49 - Type 2 diabetes mellitus with other diabetic neurological complication; Z79.4 - rolling attendant (current) use of insulin Comment: Patient has morbid obesity. Will continue with sliding scale insulin coverage. ADA diet when eating. (4) HTN (hypertension) Chronic I10 - ESSENTIAL (PRIMARY) HYPERTENSION Present on Admission: Yes essential hypertension I10 - Essential (primary) hypertension Comment: Hold current blood pressure medications. Restart as needed. (5) GERD (gastroesophageal reflux disease) Chronic K21.9 - GASTRO-ESOPHAGEAL REFLUX DISEASE WITHOUT ESOPHAGITIS without esophagitis K21.9 - Gastro-esophageal reflux disease without esophagitis Comment: Continue PPI (6) Hypothyroid Chronic E03.9 - HYPOTHYROIDISM, UNSPECIFIED acquired E03.9 - Hypothyroidism, unspecified Comment: Continue Synthroid (7) Morbid obesity with BMI of 50.0-59.9, adult Chronic E66.01 - MORBID (SEVERE) OBESITY DUE TO EXCESS CALORIES; Z68.43 - BODY MASS INDEX (BMI) 50-59.9 , ADULT Present on Admission: Yes Comment: Calorie restricted diet associated with diabetes. Plan/Goal/Comment: BMI documented 58.7 (8) Ambulatory dysfunction Chronic R26.2 - DIFFICULTY IN WALKING, NOT ELSEWHERE CLASSIFIED Present on Admission: Yes Comment: Patient is nonambulatory has a sacral decubitus and will get physical therapy to evaluate. Plan/Goal/Comment: Patient nonambulatory in bed chronically. (9) Sacral decubitus ulcer, stage II Chronic L89.152 - PRESSURE ULCER OF SACRAL REGION, STAGE 2 Present on Admission: Yes Comment: As described and will get physical therapy to evaluate and treat. (10) Anasarca Acute R60.1 - GENERALIZED EDEMA Present on Admission: Yes Comment: Switching IV to p.o. Lasix. Discharge Disposition: [facility] Coordinator Care Facility Discharge Condition: Improved Cognitive Discharge Status: Unimpaired Fuctional Discharge Status: Bed Bound Physician Follow up/Referrals: Nayely Emerson MD [Primary Care Provider] - One Week New Prescriptions: Acetazolamide [Diamox] 500 mg PO TUTHSA@0900 #20 tablet Azithromycin [Zithromax] 250 mg IV Q24H #5 vial Ceftriaxone [Rocephin] 1 gm IV Q24H #7 vial Furosemide [Lasix] 80 mg PO BID #60 tablet Discharge Home Medication List Acetaminophen [Tylenol] 650 mg PO TID 08/29/16 [History Confirmed 09/29/16 Last Taken 09/29/16] Albuterol Sulfate [Ventolin Hfa] 2 puff INH Q6H PRN 08/29/16 [History Confirmed 09/29/16 Last Taken 09/14/16] Albuterol/Ipratropium Neb [Duoneb] 3 ml NEB Q8H 08/29/16 [History Confirmed Last Taken 09/29/16] Alendronate Sodium [Fosamax] 70 mg PO FR 08/29/16 [History Confirmed 09/29/16 Last Taken 09/29/16] Atorvastatin Calcium [Lipitor] 80 mg PO HS 08/29/16 [History Confirmed 09/29/16 Last Taken 09/28/16] Bisacodyl [Dulcolax] 10 mg [place] HS 08/29/16 [History Confirmed 09/29/16 Last Taken 09/28/16] Calcium Carbonate/Vitamin D3 [Oyster Shell 500-Vit D3 200 Tb] 1 tab PO TID 08/29 [History Confirmed 09/29/16 Last Taken 09/29/16] Cranberry Fruit Concentrate [Cranberry] 450 mg PO TID 08/29/16 [History Confirmed 09/29/16 Last Taken 09/29/16] Dextran 70/Hypromellose [Natural Balance Tears Eye Drop] 2 drops OU Q2H PRN [History Confirmed 09/29/16 Last Taken 09/25/16] Dicyclomine HCl [Bentyl] 40 mg PO QID 08/29/16 [History Confirmed 09/29/16 Last Taken 09/29/16] Gabapentin [Neurontin] 200 mg PO TID 08/29/16 [History Confirmed 09/29/16 Last Taken 09/29/16] Guaifenesin 1,200 mg PO BID 08/29/16 [History Confirmed 09/29/16 Last Taken ] Insulin Aspart [Novolog Flexpen] 10 unit SQ .TID WITH MEALS 08/29/16 [History Confirmed 09/29/16 Last Taken 09/29/16] Levothyroxine [Synthroid, Levoxyl] 200 mcg PO QAM 08/29/16 [History Confirmed Last Taken 09/29/16] Lisinopril [Zestril] 20 mg PO QAM 08/29/16 [History Confirmed 09/29/16 Last Taken 09/29/16] Magnesium Hydroxide [Milk of Magnesia] 30 ml PO HS 08/29/16 [History Confirmed 09/29/16 Last Taken 09/28/16] Methadone HCl 5 mg PO TID 08/29/16 [History Confirmed 09/29/16 Last Taken ] Methadone HCl 7.5 mg PO HS 08/29/16 [History Confirmed 09/29/16 Last Taken 09/29] Naloxone HCl [Narcan] 4 mg RENY .PRN PRN 08/29/16 [History Confirmed 09/29/16 Last Taken 08/29/16 08:55] Omeprazole 20 mg PO DAILY 08/29/16 [History Confirmed 09/29/16 Last Taken ] Ondansetron HCl [Zofran] 4 mg PO Q6H PRN 08/29/16 [History Confirmed 09/29/16 Last Taken Unknown] Oxycodone HCl [Oxycodone Immediate Release] 15 mg PO Q4H PRN 08/29/16 [History Confirmed 09/29/16 Last Taken 09/20/16] Polyethylene Glycol 3350 [Miralax] 17 gm PO DAILY 08/29/16 [History Confirmed Last Taken 09/29/16] Potassium Chloride 20 meq PO DAILY 08/29/16 [History Confirmed 09/29/16 Last Taken 09/28/16] Promethazine HCl 25 mg PO Q6H PRN 08/29/16 [History Confirmed 09/29/16 Last Taken 08/28/16 13:00] Ranitidine HCl [Zantac] 150 mg PO DAILY 08/29/16 [History Confirmed 09/29/16 Last Taken 09/29/16] Sennosides [Senna] 2 tabs PO DAILY 08/29/16 [History Confirmed 09/29/16 Last Taken 09/29/16] Venlafaxine HCl [Effexor Xr] 225 mg PO DAILY 08/29/16 [History Confirmed Last Taken 09/29/16] Vitamins, Multiple [Unicap] 1 cap PO DAILY 08/29/16 [History Confirmed 09/29/16 Last Taken 09/29/16] Furosemide [Lasix] 40 mg PO DAILY PRN 09/14/16 [History Confirmed 09/29/16 Last Taken 09/14/16] Cefepime HCl 1 gm IV .Q12H X 10D 09/29/16 [History Confirmed 09/29/16 Last Taken 09/29/16] Acetazolamide [Diamox] 500 mg PO TUTHSA@0900 #20 tablet 10/05/16 [Rx Last Taken Unknown] Azithromycin [Zithromax] 250 mg IV Q24H #5 vial 10/05/16 [Rx Last Taken Unknown] Ceftriaxone [Rocephin] 1 gm IV Q24H #7 vial 10/05/16 [Rx Last Taken Unknown] Furosemide [Lasix] 80 mg PO BID #60 tablet 10/05/16 [Rx Last Taken Unknown] 10/05/16 04:40 10/05/16 04:40 Laboratory Results - last 24 hr 10/04/16 10/04/16 10/05/16 17:54 19:32 04:40 WBC 6.6 RBC 3.78 L Hgb 10.6 L Hct 33.4 L MCV 89 MCH 28.1 MCHC 31.8 L RDW 17.1 H Plt Count 275 MPV 8.4 Puncture Site pH pCO2 pO2 HCO3 Total CO2 Base Excess FiO2 % Mode BiPAP Specimen Drawn By Sodium Potassium Chloride Carbon Dioxide Anion Gap BUN Creatinine Estimated GFR (MDRD) Glucose POC Capillary Glucose 157 H 155 H Calculated Osmolality Calcium 10/05/16 10/05/16 10/05/16 04:40 05:07 05:37 WBC RBC Hgb Hct MCV MCH MCHC RDW Plt Count MPV Puncture Site Right radial pH 7.350 pCO2 77.0 H* pO2 65.0 L HCO3 42.5 H Total CO2 44.9 H Base Excess 13.2 H FiO2 % 25% Mode BiPAP 16/05 Specimen Drawn By Whitr Sodium 139 Potassium 4.8 Chloride 93 L Carbon Dioxide 43 H Anion Gap 8 BUN 30 H Creatinine 0.80 Estimated GFR (MDRD) > 60 Glucose 140 H POC Capillary Glucose 154 H Calculated Osmolality 276 Calcium 7.3 L 10/05/16 10:53 WBC RBC Hgb Hct MCV MCH MCHC RDW Plt Count MPV Puncture Site pH pCO2 pO2 HCO3 Total CO2 Base Excess FiO2 % Mode BiPAP Specimen Drawn By Sodium Potassium Chloride Carbon Dioxide Anion Gap BUN Creatinine Estimated GFR (MDRD) Glucose POC Capillary Glucose 189 H Calculated Osmolality Calcium O2 Device: Room Air Diet at Discharge: Diabetic, Low Fat, 1800 Calorie (1500 stacie) Activity: As Tolerated - DC Summary Notes HPI/Notes: [facility]. Pt unresponsive when EMS got there but revived and was alert and oriented in truck on O2 6L [place]. CO2 level was 80, came down to 60 per EMS. Pt normally on CPAP. Has a baseline tremor. Only complaint on arrival is "she has to pee". denies cp, sob. Hospital Course Note:: Discharge summary on patient named SONU MCCOLLUM admitted to [facility] on 09/29[facility]16 by Danial Rodgers MD. Date of discharge is 10/05/2016. Patient is a extremely morbidly obese white female presently residing at [facility] re[facility] originally from [place] who was referred from that facility where she being treated for multiple issues associated with her chronic respiratory failure with the obstructive sleep apnea. She is found unresponsive on day of admission and her P CO2 was 80. BiPAP was initiated with mild improvement of her respiratory failure. She is found have pneumonia addition to urinary tract infection so her antibiotic initially Zosyn was switched to Rocephin Zithromax after 4 days of hospitalization. She was seen in consultation Dr. Meehan who agreed with her IV antibiotics and recommended IV diuretics be continued as well. Unfortunately her morbid obesity has contributed to her multiple medical issues including obstructive sleep apnea and diabetes mellitus. Unfortunately long-term placement will be necessary for her care but weight loss needs to be addressed aggressively as this is contributing to her issues. Dr. Harman has volunteered to care for this very pleasant lady who previously was a patient of Dr. Nayely Emerson. Dr. Meehan will also be able to follow up this lady at the [facility]. CC: Dr. Kimani Meehan Total Time: 37 minutes Code: 78537 (>30min.) - Physical Exam Vital Signs: Last Vital Signs Temp 97.9 F 10/05/16 05:47 Pulse 75 10/05/16 05:47 Resp 18 10/05/16 05:47 BP 132/65 10/05/16 05:47 Pulse Ox 95 10/05/16 08:50 Oxygen Pulse Oxygen Saturation 95 O2 Device Room Air Oxygen Flow Rate 2 Fraction of Inspired Oxygen ( 25 FIO2) Constitutional: Distress, Decreased Consciousness, Other (Morbid obesity). negative: Alert Oriented to: Person, Unable to Test - HEENT Head: Normal Eye: negative: Conjunctival Injection, Scleral Icterus, Xanthelasma Oropharynx: negative: Drooling, Exudate, Red, White Plaques Tympanic Membrane: Normal (No discharge) ENT EAC: Normal (No oropharyngeal lesions or erythema. Mucous membranes are dry. ) TMJ: Normal Nose: No Symptoms Reported - Respiratory/Cardiovascular Respiratory: Diminished. negative: Rales, Rhonchi, Wheezes, Excursion ( Decreased excursion) - GI Auscultation: Normal (NABS) Palpation: Normal (Soft,non distended,nontender. No hepatosplenomegaly.) Tenderness: Non tender Torres's Sign: Negative - Musculoskeletal Back: Normal Extremities: Normal - Integumentary Lymphatics: Normal (No lymph node swelling or pain.) - Neurologic Memory Impaired: Unable to Test Cerebellar: Unable to Test Mood Description: Uncooperative Perception: Normal (Normal and appropriate affect)
[2016-10-05] MEDS: PROBIOTIC BLEND TAB PO SCH (12:29)
[2016-10-05] MEDS: VITAMINS, MULTIPLE CAP PO SCH (12:30)
--- NOTE | 2016-10-05 13:41 | PCM.PULM ---
Chief Complaint: Patient breathing is fair today. On oxygen via nasal cannula and uses BIPAP at night. She is going to be transferred to [facility] facility soon Current medication list reviewed:yes Notes reviewed:yes, Events from last night noted and discussed with Clinical Staff DVT prophylaxis:yes - Physical Examination Vital Signs and I&O: Last Vital Signs Temp 98.1 F 10/05/16 13:12 Pulse 85 10/05/16 13:12 Resp 20 10/05/16 13:12 BP 144/65 10/05/16 13:12 Pulse Ox 97 10/05/16 13:12 Oxygen Pulse Oxygen Saturation 97 O2 Device Room Air Oxygen Flow Rate 2 Fraction of Inspired Oxygen ( 25 FIO2) Intake & Output 10/02/16 10/03/16 10/04/16 10/05/16 23:59 23:59 23:59 23:59 Intake Total 2488 1609 386 480 Output Total 1525 2800 6700 2150 Balance 913 -4801 -6314 -8110 Patient's weight 153.405 kg 154.539 kg 154.539 kg 155.157 kg General: Alert, Oriented x3, Cooperative, No acute distress, Fatigue Respiratory: Normal - CTA, Diminished Cardiovascular: Regular rate, Regular rate and rhythm, Normal S1, No Gallops, Rubs/Murmurs, Normal S2 GI: Normal bowel sounds, Soft, Non tender, No hepatospenomegaly, No masses Extremities/Musculoskeletal: Normal pulses, Swelling Skin: Warm,Dry and Intact, No rashes, No significant lesion, Ulceration ( Decubital ulcer) Neurological: Normal speech Psych/Mental Status: Normal Affect, Drowsy Result Diagrams: 10/05/16 04:40 10/05/16 04:40 Labs (last 24 hours): Laboratory Results - last 24 hr 10/04/16 10/04/16 10/05/16 17:54 19:32 04:40 WBC 6.6 RBC 3.78 L Hgb 10.6 L Hct 33.4 L MCV 89 MCH 28.1 MCHC 31.8 L RDW 17.1 H Plt Count 275 MPV 8.4 Puncture Site pH pCO2 pO2 HCO3 Total CO2 Base Excess FiO2 % Mode BiPAP Specimen Drawn By Sodium Potassium Chloride Carbon Dioxide Anion Gap BUN Creatinine Estimated GFR (MDRD) Glucose POC Capillary Glucose 157 H 155 H Calculated Osmolality Calcium 10/05/16 10/05/16 10/05/16 04:40 05:07 05:37 WBC RBC Hgb Hct MCV MCH MCHC RDW Plt Count MPV Puncture Site Right radial pH 7.350 pCO2 77.0 H* pO2 65.0 L HCO3 42.5 H Total CO2 44.9 H Base Excess 13.2 H FiO2 % 25% Mode BiPAP 16/05 Specimen Drawn By Whitr Sodium 139 Potassium 4.8 Chloride 93 L Carbon Dioxide 43 H Anion Gap 8 BUN 30 H Creatinine 0.80 Estimated GFR (MDRD) > 60 Glucose 140 H POC Capillary Glucose 154 H Calculated Osmolality 276 Calcium 7.3 L 10/05/16 10:53 WBC RBC Hgb Hct MCV MCH MCHC RDW Plt Count MPV Puncture Site pH pCO2 pO2 HCO3 Total CO2 Base Excess FiO2 % Mode BiPAP Specimen Drawn By Sodium Potassium Chloride Carbon Dioxide Anion Gap BUN Creatinine Estimated GFR (MDRD) Glucose POC Capillary Glucose 189 H Calculated Osmolality Calcium Lab/DI/Studies Reviewed: Medications: Bisacodyl (Dulcolax) 10 mg MA HS [facility] Stop: 10/13/16 20:59 Last Admin: 10/03/16 20:20 Dose: 10 mg Pantoprazole Sodium (Protonix) 40 mg PO 0600 [facility] Stop: 10/14/16 05:59 Last Admin: 10/04/16 06:02 Dose: 40 mg Ranitidine HCl (Zantac) 150 mg PO DAILY [facility] Stop: 10/14/16 08:59 Last Admin: 10/04/16 07:55 Dose: 150 mg Dicyclomine HCl (Bentyl) 40 mg PO QID [facility] Stop: 09/12/16 15:59 Last Admin: 08/31/16 12:34 Dose: 40 mg Sennosides (Senokot) 2 tab PO DAILY [facility] Stop: 09/13/16 08:59 Last Admin: 08/31/16 11:56 Dose: Not Given Acetazolamide (Diamox) 500 mg PO TUTHSA@0900 [facility] Stop: 10/18/16 16:59 Al Hydrox/Mg Hydrox/Simethicone (Maalox Plus, Mylanta) 30 ml PO Q3H PRN PRN Reason: Heartburn or Indigestion Stop: 10/13/16 16:59 Albuterol (Proventil, Ventolin) 3 ml NEB Q2H PRN PRN Reason: Wheezing Stop: 10/13/16 16:59 Albuterol/Ipratropium (Duoneb) 3 ml NEB RTQ6 [facility] Stop: 10/13/16 16:59 Last Admin: 10/04/16 08:35 Dose: 3 ml Azithromycin (Zithromax) 500 mg PO DAILY [facility] Stop: 10/10/16 08:59 Ceftriaxone Sodium 1 gm/ (Dextrose) 100 mls @ 100 mls/hr IV Q24H [facility] Stop: 10/09/16 09:59 Last Admin: 10/04/16 07:58 Dose: 100 mls/hr Chlorphenir/Hydrocodone Polistirex (Tussionex) 5 ml PO BID PRN PRN Reason: Cough - 1ST OPTION Stop: 10/13/16 16:59 Guaifenesin (Mucinex) 1,200 mg PO BID [facility] Stop: 10/13/16 20:59 Last Admin: 10/04/16 07:54 Dose: 1,200 mg Insulin Aspart (Novolog) 10 units SQ TIDAC [facility] Stop: 10/14/16 06:59 Last Admin: 10/04/16 06:06 Dose: 10 units Venlafaxine HCl (Effexor Xr) 225 mg PO DAILY [facility] Stop: 10/14/16 08:59 Last Admin: 10/04/16 07:56 Dose: 225 mg Albuterol/Ipratropium (Duoneb) 3 ml NEB Q2H PRN PRN Reason: Wheezing Stop: 09/12/16 16:59 Albuterol/Ipratropium (Duoneb) 3 ml NEB RTQ6 [facility] Stop: 09/12/16 16:59 Last Admin: 08/31/16 13:36 Dose: 3 ml Calcium Carbonate (Oscal With Vitamin D) 500 mg PO TID [facility] Stop: 09/12/16 13:59 Last Admin: 08/31/16 14:45 Dose: 500 mg Gabapentin (Neurontin) 200 mg PO TID [facility] Stop: 09/12/16 13:59 Last Admin: 08/31/16 14:45 Dose: 200 mg Guaifenesin (Mucinex) 1,200 mg PO BID [facility] Stop: 09/12/16 20:59 Last Admin: 08/31/16 11:56 Dose: Not Given Insulin Aspart (Novolog) 10 units SQ TIDWM [facility] Stop: 09/12/16 17:29 Last Admin: 08/30/16 05:19 Dose: Not Given Levothyroxine Sodium (Synthroid, Levoxyl) 200 mcg PO QAM [facility] Stop: 09/13/16 08:59 Last Admin: 08/31/16 12:34 Dose: 200 mcg Methadone HCl (Dolophine) 7.5 mg PO HS [facility] Stop: 09/12/16 20:59 Last Admin: 09/05/16 20:51 Dose: 7.5 mg Methadone HCl (Dolophine) 5 mg PO 0000,0600,1200 [facility] Stop: 09/06/16 11:59 Last Admin: 09/06/16 05:56 Dose: 5 mg Oxycodone HCl (Oxycodone Immediate Release (Oxyir)) 15 mg PO Q4H PRN PRN Reason: Severe Pain Stop: 09/17/16 13:25 Last Admin: 09/05/16 14:08 Dose: 15 mg Furosemide (Lasix) 40 mg IV LASBID [facility] Stop: 10/17/16 16:59 Last Admin: 10/05/16 09:47 Dose: 40 mg Gabapentin (Neurontin) 200 mg PO TID [facility] Stop: 10/13/16 20:59 Last Admin: 10/05/16 06:07 Dose: 200 mg Insulin Glargine (Lantus Pen) 106 units SQ HS [facility] Stop: 10/13/16 20:59 Last Admin: 10/04/16 22:31 Dose: 106 units Mupirocin (Bactroban) 15 gm TOP TID [facility] Stop: 10/11/16 16:59 Last Admin: 10/05/16 06:07 Dose: 1 applic Enoxaparin Sodium (Lovenox) 75 mg SQ Q24H [facility] Stop: 09/12/16 17:59 Last Admin: 08/30/16 18:03 Dose: 75 mg - Assessment/Plan (1) Acute respiratory failure with hypoxia Acute J96.01 - ACUTE RESPIRATORY FAILURE WITH HYPOXIA Comment/Plan: Patient has been feeling somewhat better I would continue the current treatment continue Lasix and Diamox on this patient and attempt to diurese her significantly so that she feels better I would continue antibiotics including Rocephin and Zithromax and continue all other supportive care prognosis is guarded because of her morbid obesity however patient needs to be on BiPAP for her obesity hypoventilation syndrome as well as for her sleep apnea (2) Morbid obesity with BMI of 50.0-59.9, adult Chronic E66.01 - MORBID (SEVERE) OBESITY DUE TO EXCESS CALORIES; Z68.43 - BODY MASS INDEX (BMI) 50-59.9 , ADULT Comment/Plan: Continue the current treatment (3) Ambulatory dysfunction Chronic R26.2 - DIFFICULTY IN WALKING, NOT ELSEWHERE CLASSIFIED Comment/Plan: No change in current treatment
[2016-10-05 17:23] VITALS: BP 124/64; PULSE 81; TEMP 97.2
== END 2016-10-05 17:28 | DRG 189 ==
LOC: ED 15:07 → ICU 18:20 → PCU 10-04 13:08 → MPS3 10-04 20:54
PROVIDERS: ADMIT Hospitalist; ATTEND Internal Medicine
PROC: 5A09357 Assistance with Respiratory Ventilation, Less than 24 Consecutive Hours, Continuous Positive Airway Pressure (ICD-10-PCS; principal; 2016-09-29)
PROC: 039B3ZZ Drainage of Right Radial Artery, Percutaneous Approach (ICD-10-PCS; 2016-09-29)
PROC: 05HM33Z Insertion of Infusion Device into Right Internal Jugular Vein, Percutaneous Approach (ICD-10-PCS; 2016-09-29)
PROC: 30243N1 Transfusion of Nonautologous Red Blood Cells into Central Vein, Percutaneous Approach (ICD-10-PCS; 2016-10-03)
DX: J96.22 Acute and chronic respiratory failure with hypercapnia (principal); J18.1 Lobar pneumonia, unspecified organism; N17.9 Acute kidney failure, unspecified; Z68.43 Body mass index [BMI] 50.0-59.9, adult; J44.0 Chronic obstructive pulmonary disease with (acute) lower respiratory infection; N30.01 Acute cystitis with hematuria; E66.2 Morbid (severe) obesity with alveolar hypoventilation; J96.01 Acute respiratory failure with hypoxia; L89.152 Pressure ulcer of sacral region, stage 2; Z22.322 Carrier or suspected carrier of Methicillin resistant Staphylococcus aureus; Z79.4 Long term (current) use of insulin; I10 Essential (primary) hypertension; K21.9 Gastro-esophageal reflux disease without esophagitis; E03.9 Hypothyroidism, unspecified; R26.2 Difficulty in walking, not elsewhere classified; R60.1 Generalized edema; E78.00 Pure hypercholesterolemia, unspecified; I51.9 Heart disease, unspecified; M19.90 Unspecified osteoarthritis, unspecified site; F41.9 Anxiety disorder, unspecified; Z85.9 Personal history of malignant neoplasm, unspecified; Z88.1 Allergy status to other antibiotic agents; Z88.8 Allergy status to other drugs, medicaments and biological substances; Z79.899 Other long term (current) drug therapy; E87.70 Fluid overload, unspecified; I87.8 Other specified disorders of veins; E87.5 Hyperkalemia; Z23 Encounter for immunization; E11.9 Type 2 diabetes mellitus without complications
CPT/HCPCS: 36415; 36430; 36556; 36600; 71010; 80048; 80053; 81001; 82043; 82803; 82962; 83036; 83605; 83735; 83880; 84484; 85007; 85027; 85610; 85730; 86850; 86870; 86900; 86901; 86902; 86905; 86920; 87040; 87086; 90471; 90732; 93005; 93970; 94640; 94660; 96372; 97161; 99285; G0237; J0456; J0696; J1642; J1650; J1940; J2405; J2543; J3490; J7040; J7060; J7620; P9016; S5561